=== PATIENT | female | born 1975 | race Caucasian/White ===

== ENCOUNTER 2020-05-24 08:56 | Emergency (ER) | payer BC, SELFPAY ==
--- NOTE | ~2020-05-24 | XR_ITS ---
EXAMINATION: XR chest 2V EXAM DATE: 05/24/2020 09:38 INDICATION: Cough with deep inspiration. TECHNIQUE: Frontal and lateral projections of the chest obtained and reviewed. Comparison is made to prior examination from 09/22/2010. FINDINGS: The lungs are clear. There are no pleural effusions. The cardiomediastinal silhouette is within normal limits. There is no pneumothorax suspected. The bones and soft tissues are unremarkab le. IMPRESSION: No acute cardiopulmonary findings. Reviewed, dictated and finalized at location B. 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
[2020-05-24 09:10] VITALS: BP 124/74; PULSE 82; RESP 20; TEMP 37.9; O2SAT 100
--- NOTE | 2020-05-24 09:51 | ED.URI ---
HPI - URI/Sore Throat General Chief Complaint: Upper Respiratory Infection Stated Complaint: poss bronchitis Time Seen by Provider: 05/24/20 09:38 Source: patient and RN notes reviewed Mode of arrival: ambulatory Limitations: no limitations History of Present Illness HPI Narrative: Patient presents today complaining of nasal congestion x1 month. She was subsequently treated with Cipro by her PCP. States after she finished the antibiotic her symptoms returned, approximately 2 to 3 days ago with a cough that has been worsening since onset. At 3:00 this morning she woke up stating that she was not able to take a deep breath, and this is worse when she lies down. She also reports a bit of a headache. Denies fever, body aches, chills, sweats, sore throat, or ear pain. Denies history of COPD. Reports asthma as a child. She has been taking Tylenol Sinus. History of ankylosing spondylitis for which she takes methotrexate and Taltz. She is a non-smoker. She had a flu shot in April. Related Data Home Medications Medication Instructions Recorded Confirmed duloxetine mg PO 05/24/20 folic acid 1 mg PO DAILY 05/24/20 05/24/20 gabapentin 05/24/20 hydrocodone-acetaminophen 05/24/20 ixekizumab [Taltz Autoinjector] mg SUBCUT 05/24/20 methotrexate sodium 05/24/20 Allergies Allergy/AdvReac Type Severity Reaction Status Date / Time strawberry Allergy Mild THROAT Verified 06/20/17 11:30 SWELLING AND ONSTRUCTION Penicillins Allergy Unknown Swelling Verified 05/24/20 09:18 of Lip/Tongue/Throat Review of Systems Review of Systems: Narrative: CONSTITUTIONAL: Denies body aches, fever, chills, or sweats. EYES: Denies visual changes, redness, or discharge. ENT: Denies rhinorrhea, sore throat, or otalgia. + Nasal congestion CARDIOVASCULAR: Denies chest pain, palpitations, or edema. RESPIRATORY: + Cough, shortness of breath GASTROINTESTINAL: Denies abdominal pain, nausea, vomiting, or diarrhea. GENITOURINARY: Denies dysuria or hematuria. SKIN: Denies rash, itching, or wounds. MUSCULOSKELETAL: Denies back pain, joint pain, or myalgia. NEUROLOGIC: Denies numbness, tingling, or weakness. + Headache PSYCH: Denies depression or anxiety. PMFSH Past Medical History Medical History (Updated 05/24/20 @ 12:18 by Kathy Coronado, [facility], ) Ankylosing spondylitis Family History Family History (Updated 07/07/18 @ 11:33 by DOCTOR UNKNOWN) Father Diabetes mellitus Comments At time of signature, I have reviewed and agree with nursing past medical, surgical, social and family history unless otherwise noted. Please see nursing chart for further information. There is no relevant family history pertinent to the presenting complaint Exam Narrative: Exam Narrative: GENERAL: Well-appearing, well-nourished, and in no acute distress. HEAD: Normocephalic, atraumatic. EYES: EOMI. No redness or drainage. Conjunctivae normal. ENT: Mucous membranes pink and moist. Nares mildly congested. No rhinorrhea. TMs normal bilaterally. Throat normal. Uvula midline. NECK: Normal AROM. Supple. No lymphadenopathy. CHEST: No respiratory distress. Clear to auscultation. HEART: Regular rate and rhythm. No murmur appreciated. Normal peripheral pulses. ABDOMEN: Soft, nontender, nondistended, normal active bowel sounds. MUSCULOSKELETAL: No bony tenderness. EXTREMITIES: Normal range of motion. No edema. SKIN: Warm, dry, no rash. Capillary refill normal. Normal skin turgor. NEURO: No focal deficits. Alert and oriented x3. Gait steady. PSYCH: Normal affect. No signs of depression or anxiety. Course Vital Signs Vital signs: Vital Signs Temperature 100.2 F H 05/24/20 09:10 Pulse Rate 82 05/24/20 09:10 Respiratory Rate 20 05/24/20 09:10 Blood Pressure 124/74 05/24/20 09:10 Pulse Oximetry 100 05/24/20 09:10 Temperature 100.2 F H 05/24/20 09:10 Pulse Rate 82 05/24/20 09:10 Respiratory Rate 20
== END 2020-05-24 10:08 | disposition home or self-care (01) ==
PROVIDERS: Emergency Provider Nurse Practitioner; PCP Nurse Practitioner Adult Health
DX: J40 Bronchitis, not specified as acute or chronic (principal); J06.9 Acute upper respiratory infection, unspecified; M45.9 Ankylosing spondylitis of unspecified sites in spine
CPT/HCPCS: 71046; 99213; G0463

== ENCOUNTER 2020-06-27 08:59 | Emergency (ER) | payer BC, SELFPAY ==
[2020-06-27 09:06] VITALS: BP 125/85; PULSE 71; RESP 20; TEMP 36.4; O2SAT 100
--- NOTE | 2020-06-27 09:09 | ED.GENADULT ---
HPI - General Adult General Chief complaint: Eye Problems Stated complaint: Eye Problems Time Seen by Provider: 06/27/20 09:10 Source: patient Mode of arrival: ambulatory Limitations: no limitations History of Present Illness HPI narrative: 44-year-old female patient presents to the [facility] with complaints of left eye redness for the past 3 days. Patient states she has had some clear watering from the eye but denies any colored discharge. Patient denies any itching or pain to the eye. Patient states it does feel little bit dry and states that she noticed some swelling around the upper lower lid. Patient states she is also battling some sinus issues off and on for the past month but has not been taking any antihistamines. Patient states she has had a little bit of a runny nose, some congestion denies any fevers, body aches or chills. Patient denies any cough, chest pain or shortness of breath. Patient denies wearing contacts or glasses. Denies any injury to the eye that she is aware of. Related Data Home Medications Medication Instructions Recorded Confirmed duloxetine 60 mg PO DAILY 05/24/20 06/27/20 folic acid 1 mg PO DAILY 05/24/20 06/27/20 gabapentin 600 mg PO TID 05/24/20 06/27/20 hydrocodone-acetaminophen 5 - 325 tablet PO TID 05/24/20 06/27/20 ixekizumab [Taltz Autoinjector] 80 mg SUBCUT MONTHLY 05/24/20 06/27/20 methotrexate sodium 2.5 mg PO DAILY 05/24/20 06/27/20 Allergies Allergy/AdvReac Type Severity Reaction Status Date / Time strawberry Allergy Mild THROAT Verified 06/27/20 09:15 SWELLING AND ONSTRUCTION Penicillins Allergy Unknown Swelling Verified 06/27/20 09:15 of Lip/Tongue/Throat Review of Systems Review of Systems: Narrative: CONSTITUTIONAL: Denies fever, chills, or sweats. EYES: Denies visual changes, positive left eye redness, tearing clear discharge. ENT: Positive rhinorrhea, congestion, denies sore throat, or otalgia. CARDIOVASCULAR: Denies chest pain, palpitations, or edema. RESPIRATORY: Denies cough or dyspnea. GASTROINTESTINAL: Denies abdominal pain, nausea, vomiting, or diarrhea. GENITOURINARY: Denies dysuria or hematuria. SKIN: Denies rash or itching. MUSCULOSKELETAL: Denies back pain, joint pain, or myalgia. NEUROLOGIC: Denies headache, numbness, or weakness. PSYCHIATRIC: Denies anxiety or depression. [facility] Past Medical History Medical History (Updated 06/27/20 @ 09:21 by ELIAS Davila) Ankylosing spondylitis Anxiety Asthma Degenerative disc disease Depression Gastrointestinal disorder Fatty liver, weight loss surgery Kidney stones Musculoskeletal disorder Skull fracture, left ankle fracture, neck pain, arthritis, right tarsal tunnel release Osteoarthritis Left knee Surgical History Surgical History (Updated 06/27/20 @ 09:12 by ELIAS Davila) History of tonsillectomy Hx of cholecystectomy Family History Family History Father Diabetes mellitus Comments At the time of my signature I agree with nursing past medical history, surgical, social, and family history. There is no relevant family history pertinent to the presenting complaint. Exam Narrative: Exam Narrative: GENERAL: Well-appearing, well-nourished, and in no acute distress. HEAD: Normocephalic, atraumatic. EYES: PERRLA and EOM intact without limitation or complaint of pain, no periorbital soft tissue swelling ,no erythema, warmth or tenderness noted, no obvious deformity. There is some swelling noted to the upper and lower lid on the left eye with slight erythema present. No warmth present. No crusting or swelling.clear tearing. No photophobia. No nystagmus No FB or lesion on lid eversion. Corneas grossly clear, no obvious FB or hyphens/hypopyon. injection to sclera of left eye. Conjunctive does appear to be red and swollen. Lids and lashes clear. ENT: Nares with erythema and edema noted bilaterally, no rhino
== END 2020-06-27 09:34 | disposition home or self-care (01) ==
PROVIDERS: Emergency Provider Nurse Practitioner Family; PCP Nurse Practitioner Adult Health
DX: H10.12 Acute atopic conjunctivitis, left eye (principal); M45.9 Ankylosing spondylitis of unspecified sites in spine; J45.909 Unspecified asthma, uncomplicated; M17.12 Unilateral primary osteoarthritis, left knee; K76.0 Fatty (change of) liver, not elsewhere classified
CPT/HCPCS: 99213; G0463

== ENCOUNTER 2020-12-20 18:17 | Emergency (ER) | payer BC, SELFPAY ==
[2020-12-20 18:24] VITALS: BP 121/76; PULSE 81; RESP 20; TEMP 36.4; O2SAT 100
--- NOTE | 2020-12-20 18:31 | ED.URI ---
HPI - URI/Sore Throat General Chief Complaint: Dental/Oral Stated Complaint: Sore Throat Time Seen by Provider: 12/20/20 18:33 Source: patient Mode of arrival: ambulatory Limitations: no limitations History of Present Illness HPI Narrative: patient presents with sore throat and white patches on her tonsils and tongue. no drooling and no trouble swallowing. patient states she lost her sense of smell this am and was ordered a covid test by pcp. patient states covid test was negative. MD elicited complaint: sore throat Related Data Home Medications Medication Instructions Recorded Confirmed duloxetine 60 mg PO DAILY 05/24/20 12/20/20 folic acid 1 mg PO DAILY 05/24/20 12/20/20 gabapentin 600 mg PO TID 05/24/20 12/20/20 hydrocodone-acetaminophen 5 - 325 tablet PO TID 05/24/20 12/20/20 ixekizumab [Taltz Autoinjector] 80 mg SUBCUT MONTHLY 05/24/20 12/20/20 methotrexate sodium 2.5 mg PO DAILY 05/24/20 12/20/20 methylprednisolone See Rx Instructions .ROUTE .COMPLEX 12/20/20 12/20/20 Allergies Allergy/AdvReac Type Severity Reaction Status Date / Time strawberry Allergy Mild THROAT Verified 12/20/20 18:23 SWELLING AND ONSTRUCTION Penicillins Allergy Unknown Swelling Verified 12/20/20 18:23 of Lip/Tongue/Throat Review of Systems Review of Systems: Narrative: CONSTITUTIONAL: Denies chills, or sweats. Reports fever and generalized body aches EYES: Denies visual changes, redness, or discharge. ENT: Denies otalgia. Reports nasal congestion runny nose and sore throat CARDIOVASCULAR: Denies chest pain, palpitations, or edema. RESPIRATORY: Denies dyspnea. Reports occasional cough GASTROINTESTINAL: Denies abdominal pain, nausea, vomiting, or diarrhea. GENITOURINARY: Denies dysuria or hematuria. SKIN: Denies rash or itching. MUSCULOSKELETAL: Denies back pain, joint pain, or myalgia. Reports generalized body aches NEUROLOGIC: Denies headache, numbness, or weakness. PSYCHIATRIC: Denies anxiety or depression. [facility] Past Medical History Medical History (Updated 12/20/20 @ 18:36 by ELIAS Quintero) Ankylosing spondylitis Anxiety Asthma Degenerative disc disease Depression Gastrointestinal disorder Fatty liver, weight loss surgery Kidney stones Musculoskeletal disorder Skull fracture, left ankle fracture, neck pain, arthritis, right tarsal tunnel release Osteoarthritis Left knee Surgical History Surgical History (Updated 06/27/20 @ 09:12 by ELIAS Davila) History of tonsillectomy Hx of cholecystectomy Family History Family History Father Diabetes mellitus Comments At time of signature, agree with nursing past medical, surgical, social and family history. There is no relevant family history pertinent to the presenting complaint Exam Narrative: Exam Narrative: The patient is a well-developed, well-nourished in no acute distress. SKIN: Skin is warm and dry without erythema, swelling or exudate. There is good turgor. No tenting. HEAD: Atraumatic. Normocephalic. No temporal or scalp tenderness. EYES: Moist and bright. Sclera and conjunctivae normal. No discharge. PERRLA. Extraocular motions intact. Gross visual acuity intact. EARS: Pinna is normal shape and contour. Clear external auditory canals. TM pearly rojas with good cone of light, no erythema or suppuration. Bilateral cerumen noted no gross hearing deficit. NOSE: pink, moist mucosa with good air movement. Clear rhinorrhea without nasal flaring. Septum midline. Mouth: moist mucous membranes. White coating to tongue and sides of cheeks it does not wipe off consistent with thrush THROAT; mild erythema noted to posterior oropharynx with moderate postnasal drainage. Moderate amount of pharyngeal erythremia with exudate or ulceration.. Uvula midline. Normal movement of soft palate. NECK: Supple and nontender with full range of motion without discomfort. No meningeal signs. KULWANT
[2020-12-20 18:38] VITALS: BP 121/76; PULSE 81; RESP 20; TEMP 36.4; O2SAT 100
== END 2020-12-20 19:00 | disposition home or self-care (01) ==
PROVIDERS: Emergency Provider Nurse Practitioner Family; PCP Family Medicine
DX: J02.9 Acute pharyngitis, unspecified (principal); B37.0 Candidal stomatitis; M45.9 Ankylosing spondylitis of unspecified sites in spine; F41.9 Anxiety disorder, unspecified; J45.909 Unspecified asthma, uncomplicated; F32.9 Major depressive disorder, single episode, unspecified; M17.12 Unilateral primary osteoarthritis, left knee
CPT/HCPCS: 87081; 87880; 99213; G0463

== ENCOUNTER 2021-02-03 08:07 | Emergency (ER) | payer BC, SELFPAY ==
[2021-02-03 08:17] VITALS: BP 131/87; PULSE 86; RESP 18; TEMP 37.2; O2SAT 100
--- NOTE | 2021-02-03 08:26 | ED.URI ---
HPI - URI/Sore Throat General Chief Complaint: Upper Respiratory Infection Stated Complaint: cough sore throat congestion Time Seen by Provider: 02/03/21 08:26 Source: patient History of Present Illness HPI Narrative: Patient presents with a 3-day history of cough nasal congestion and increased fatigue. No shortness of breath and no chest pain. Patient has not been immunized for COVID-19 and has not had any exposure that she is aware of. MD elicited complaint: fever and cough Related Data Home Medications Medication Instructions Recorded Confirmed duloxetine 60 mg PO DAILY 05/24/20 02/03/21 folic acid 1 mg PO DAILY 05/24/20 02/03/21 gabapentin 600 mg PO TID 05/24/20 02/03/21 hydrocodone-acetaminophen 5 - 325 tablet PO TID 05/24/20 02/03/21 ixekizumab [Taltz Autoinjector] 80 mg SUBCUT MONTHLY 05/24/20 02/03/21 ergocalciferol (vitamin D2) 1,250 mcg PO WEEKLY 02/03/21 02/03/21 propranolol 40 mg PO BID 02/03/21 02/03/21 topiramate 25 mg PO BID 02/03/21 02/03/21 Allergies Allergy/AdvReac Type Severity Reaction Status Date / Time Penicillins Allergy Severe Anaphylaxis Verified 02/03/21 08:32 strawberry Allergy Mild THROAT Verified 02/03/21 08:32 SWELLING AND ONSTRUCTION Review of Systems Review of Systems: CONSTITUTIONAL: Denies chills, or sweats. Reports fever and generalized body aches EYES: Denies visual changes, redness, or discharge. ENT: Denies otalgia. Reports nasal congestion runny nose and sore throat CARDIOVASCULAR: Denies chest pain, palpitations, or edema. RESPIRATORY: Denies dyspnea. Reports occasional cough GASTROINTESTINAL: Denies abdominal pain, nausea, vomiting, or diarrhea. GENITOURINARY: Denies dysuria or hematuria. SKIN: Denies rash or itching. MUSCULOSKELETAL: Denies back pain, joint pain, or myalgia. Reports generalized body aches NEUROLOGIC: Denies headache, numbness, or weakness. PSYCHIATRIC: Denies anxiety or depression. [facility] Past Medical History Medical History (Updated 02/03/21 @ 08:51 by ELIAS Quintero) Ankylosing spondylitis Anxiety Asthma Degenerative disc disease Depression Gastrointestinal disorder Fatty liver, weight loss surgery Kidney stones Musculoskeletal disorder Skull fracture, left ankle fracture, neck pain, arthritis, right tarsal tunnel release Osteoarthritis Left knee Surgical History Surgical History (Updated 06/27/20 @ 09:12 by ELIAS Davila) History of tonsillectomy Hx of cholecystectomy Family History Family History Father Diabetes mellitus Comments At time of signature, agree with nursing past medical, surgical, social and family history. There is no relevant family history pertinent to the presenting complaint Exam Narrative: The patient is a well-developed, well-nourished in no acute distress. SKIN: Skin is warm and dry without erythema, swelling or exudate. There is good turgor. No tenting. HEAD: Atraumatic. Normocephalic. No temporal or scalp tenderness. EYES: Moist and bright. Sclera and conjunctivae normal. No discharge. PERRLA. Extraocular motions intact. Gross visual acuity intact. EARS: Pinna is normal shape and contour. Clear external auditory canals. TM pearly rojas with good cone of light, no erythema or suppuration. Bilateral cerumen noted no gross hearing deficit. NOSE: pink, moist mucosa with good air movement. Clear rhinorrhea without nasal flaring. Septum midline. Mouth: moist mucous membranes. THROAT; mild erythema noted to posterior oropharynx with moderate postnasal drainage. Without exudate or ulceration.. Uvula midline. Normal movement of soft palate. NECK: Supple and nontender with full range of motion without discomfort. No meningeal signs. LUNGS: Equal and bilateral breath sounds without wheezes, rales or rhonchi. CHEST: The chest wall is without retractions or use of accessory muscles. HEART: Has a regular rate and rhythm without murmur, gal
== END 2021-02-03 08:53 | disposition home or self-care (01) ==
PROVIDERS: Emergency Provider Nurse Practitioner Family; PCP Nurse Practitioner Adult Health
DX: J06.9 Acute upper respiratory infection, unspecified (principal); B34.9 Viral infection, unspecified; Z20.822 Contact with and (suspected) exposure to COVID-19; J45.909 Unspecified asthma, uncomplicated; M17.12 Unilateral primary osteoarthritis, left knee
CPT/HCPCS: 87426; 99213; C9803; G0463

== ENCOUNTER → 2021-05-07 10:17 | Outpatient (CLI) | payer BC, SELFPAY ==
--- NOTE | ~2021-05-07 | US_ITS ---
EXAMINATION: US pelvic complete w TV DATE: 05/07/2021 10:47 INDICATION: Abdominal bloating Comparison:Ultrasound dated 03/18/2017 TECHNIQUE: Multiple transabdominal and endovaginal sonographic images of the pelvis performed. FINDINGS: The uterus measures 5.6 x 3.2 x 3.9 cm. The endometrial complex measures 5 mm. The right ovary measures 1.4 x 1.3 x 1.2 cm and the left ovary measures 3.5 x 3.1 x 3.1 cm. There ar e small follicles in each ovary. There is a 3.1 cm simple cyst of the left ovary. Normal doppler sign al in both ovaries. There is no free fluid in the pelvis. There are no abnormal masses seen on either side. IMPRESSION: 1. Simple left ovarian cyst measuring 3.1 cm. Reviewed, dictated and finalized at location A. ING TECHNICIAN
== END ==
PROVIDERS: Visit Provider Nurse Practitioner
DX: N93.8 Other specified abnormal uterine and vaginal bleeding (principal); N83.202 Unspecified ovarian cyst, left side
CPT/HCPCS: 76830; 76856

== ENCOUNTER 2021-08-07 13:03 | Outpatient (CLI) | payer OTHER, SELFPAY ==
--- NOTE | ~2021-08-07 | MM_ITS ---
EXAMINATION: MM screening mayra BI w sai HISTORY: Screening TECHNIQUE: Craniocaudal and mediolateral oblique 3-D tomosynthesis images were obtained and synthetic 2-D images were generated. CAD analysis was submitted and interpreted. COMPARISON: Comparison to multiple prior studies sequentially, with oldest reviewed study dated 08/2016. BREAST PARENCHYMAL COMPOSITION: There are scattered areas of fibroglandular density. FINDINGS: There is no evidence of suspicious mass, calcification, or architectural distortion to sugg est malignancy in either breast. There has been no suspicious interval change. IMPRESSION: 1. No mammographic evidence of malignancy. 2. Recommend routine screening mammography in one year. BI-RADS Category 1: Negative Reviewed, dictated and finalized at location A. RTISING SALES ASSOCIATE
--- NOTE | ~2021-08-07 | US_ITS ---
EXAMINATION: US transvaginal DATE: 08/07/2021 13:39 INDICATION: Ovarian cyst. Follow-up. TECHNIQUE: Multiple transvaginal sonographic images of the pelvis were obtained. COMPARISON: ultrasound 05/07/21 FINDINGS: The uterus measures 6.2 x 3.7 x 4.2 cm. There is no free fluid in the pelvis. The endometrial complex measures 6 mm in thickness. The right ovary is not visualized. The left ovary measures 4.8 x 3.3 x 2 .9 cm. There is a 2.5 cm dominant follicle in left ovary. There is vascular flow in left ovary. IMPRESSION: 1. Normal left ovary and uterus. Right ovary not visualized. Reviewed, dictated and finalized at location A. RNATIONAL EXCHANGE COORDINATOR
== END 2021-08-07 13:04 ==
PROVIDERS: Visit Provider Obstetrics & Gynecology Gynecology
DX: Z12.31 Encounter for screening mammogram for malignant neoplasm of breast (principal); N83.202 Unspecified ovarian cyst, left side
CPT/HCPCS: 76830; 77063; 77067

== ENCOUNTER 2022-11-22 16:14 | Emergency (ER) | payer OTHER, SELFPAY ==
[2022-11-22 16:30] VITALS: BP 128/90; PULSE 89; RESP 18; TEMP 37; O2SAT 100
--- NOTE | 2022-11-22 17:00 | ED.URI ---
HPI - URI/Sore Throat General Chief Complaint: Upper Respiratory Infection Stated Complaint: Chest Congestion/Cough Time Seen by Provider: 11/22/22 17:00 Source: patient, RN notes reviewed and old records reviewed Mode of arrival: ambulatory Limitations: no limitations History of Present Illness HPI Narrative: 47-year-old female presents to the [facility] with complaints of chest congestion and a cough since for 2 days. Tried taking [id number] medications with minimal to no relief. Denies fevers, chest pain. Denies smoking. Onset (ago): day(s) (2) Treatments prior to arrival: cold medicine Related Data Home Medications Medication Instructions Recorded Confirmed cyanocobalamin (vitamin B-12) See Rx Instructions .Route .COMPLEX 11/22/22 11/22/22 1,000 mcg/mL injection solution duloxetine 60 mg capsule,delayed 60 mg PO DAILY 11/22/22 11/22/22 release gabapentin 600 mg tablet 600 mg PO TID 11/22/22 11/22/22 ixekizumab 80 mg/mL subcutaneous See Rx Instructions .Route .COMPLEX 11/22/22 11/22/22 auto-injector (Taltz Autoinjector) methotrexate sodium 2.5 mg tablet See Rx Instructions .Route .COMPLEX 11/22/22 11/22/22 omeprazole 40 mg capsule,delayed 40 mg PO DAILY 11/22/22 11/22/22 release Allergies Allergy/AdvReac Type Severity Reaction Status Date / Time Penicillins Allergy Severe Anaphylaxis Verified 11/22/22 16:18 strawberry Allergy Mild THROAT Verified 11/22/22 16:18 SWELLING AND ONSTRUCTION Review of Systems Review of Systems: All systems reviewed & are unremarkable except as noted in HPI and below Constitutional: Constitutional: Reports no additional constitutional complaints Eyes: Eyes: Reports no additional eye complaints ENT: Reports system reviewed and no additional complaints, except as documented Cardiovascular: Cardiovascular: Reports no additional cardiovascular complaints, Denies chest pain and Denies dyspnea Respiratory: Respiratory: Reports as per HPI, Reports chest congestion, Reports cough and Denies dyspnea Gastrointestinal: Gastrointestinal: Reports no additional gastrointestinal complaints, Denies abdominal pain, Denies nausea and Denies vomiting Musculoskeletal: Musculoskeletal: Reports no additional musculoskeletal complaints Integumentary/Breasts: Skin/Breast: Reports system reviewed and no additional complaints, except as docu Neurologic: Reports system reviewed and no additional complaints, except as documented Psychiatric: Psychiatric: Reports no additional psychiatric complaints Allergic/Immunologic: Allergic/Immunologic: Reports no additional allergic/immunologic complaints PMFSH Past Medical History Medical History Ankylosing spondylitis Anxiety Asthma Degenerative disc disease Depression Gastrointestinal disorder Fatty liver, weight loss surgery Kidney stones Musculoskeletal disorder Skull fracture, left ankle fracture, neck pain, arthritis, right tarsal tunnel release Osteoarthritis Left knee Surgical History Surgical History History of tonsillectomy Hx of cholecystectomy Family History Family History Father Diabetes mellitus Comments At the time of my signature, I reviewed and agree with the nursing past medical, surgical, social, and family history. There is no relevant family history pertinent to the patient complaint. Exam Const: General: cooperative, healthy appearing, comfortable, no acute distress, well developed, alert and well nourished Nutritional Appearance: well nourished and obese Orientation/consciousness: patient oriented x3 Limitations: no limitations HENMT: Head: normal to inspection Ears: hearing grossly normal bilaterally and external ears normal Face/Nose/Sinus: Normal external nose present, Normal nares present, Normal nasal mucous membran
== END 2022-11-22 17:10 | disposition home or self-care (01) ==
PROVIDERS: Emergency Provider Nurse Practitioner
DX: J40 Bronchitis, not specified as acute or chronic (principal); M45.9 Ankylosing spondylitis of unspecified sites in spine; J45.909 Unspecified asthma, uncomplicated; M17.12 Unilateral primary osteoarthritis, left knee
CPT/HCPCS: 99213; G0463

== ENCOUNTER 2024-03-23 08:49 | Emergency (ER) | payer OTHER, SELFPAY ==
--- NOTE | ~2024-03-23 | XR_ITS ---
XR chest 2V Ordering provider: ELIAS Mock History: 48 years Female with . Dry/wet continuous cough. Previous smoker . Comparison: May 24, 2020 FINDINGS: MEDIASTINUM: The cardiac silhouette is not enlarged. LUNGS: No infiltrates, effusions or pneumothorax. OTHER: No free air under the diaphragm. Spinal stimulator is noted. IMPRESSION: No acute cardiopulmonary pathology. Reviewed, dictated and finalized at location A.
[2024-03-23 08:57] VITALS: BP 138/88; PULSE 87; RESP 18; TEMP 36.3; O2SAT 100
--- NOTE | 2024-03-23 09:47 | ED.GENADULT ---
HPI - General Adult General Chief complaint: Upper Respiratory Infection Stated complaint: Cough/Chest Pain Right Side Source: patient Mode of arrival: ambulatory Limitations: no limitations History of Present Illness HPI narrative: Patient presents for evaluation of sick symptoms since last . She initially had some sinus congestion postnasal drainage. She now has a productive cough dyspnea on exertion. She states that some of her coughing episodes are so severe that makes her feel nauseous. She has not had any vomiting or diarrhea. Reports hot flashes and chills but did not have a thermometer to check her temperature. No recent sick contacts to her knowledge. She has been taking Robitussin for symptoms. She states she had asthma in childhood but outgrew it. Related Data Home Medications Medication Instructions Recorded Confirmed cyanocobalamin (vitamin B-12) See Rx Instructions .Route .COMPLEX 11/22/22 11/22/22 1,000 mcg/mL injection solution duloxetine 60 mg capsule,delayed 60 mg PO DAILY 11/22/22 11/22/22 release gabapentin 600 mg tablet 600 mg PO TID 11/22/22 11/22/22 ixekizumab 80 mg/mL subcutaneous See Rx Instructions .Route .COMPLEX 11/22/22 11/22/22 auto-injector (Taltz Autoinjector) methotrexate sodium 2.5 mg tablet See Rx Instructions .Route .COMPLEX 11/22/22 11/22/22 omeprazole 40 mg capsule,delayed 40 mg PO DAILY 11/22/22 11/22/22 release Allergies Allergy/AdvReac Type Severity Reaction Status Date / Time Penicillins Allergy Severe Anaphylaxis Verified 11/22/22 16:18 strawberry Allergy Mild THROAT Verified 11/22/22 16:18 SWELLING AND ONSTRUCTION Review of Systems Review of Systems: CONSTITUTIONAL: Denies fever, chills, or sweats. EYES: Denies visual changes, redness, or discharge. ENT: Reports sore throat from coughing. Denies sore throat otherwise. Denies rhinorrhea or otalgia. CARDIOVASCULAR: Denies chest pain, palpitations, or edema. RESPIRATORY: Reports cough and dyspnea on exertion. GASTROINTESTINAL: Reports nausea during severe coughing episodes. Denies nausea otherwise. Denies abdominal pain, vomiting, or diarrhea. GENITOURINARY: Denies dysuria or hematuria. SKIN: Denies rash or itching. MUSCULOSKELETAL: Denies back pain, joint pain, or myalgia. NEUROLOGIC: Denies headache, numbness, dizziness, or weakness. PSYCHIATRIC: Denies anxiety or depression. [facility] Past Medical History Medical History (Updated 03/23/24 @ 10:12 by ELIAS Mock, ) Ankylosing spondylitis Anxiety Asthma Degenerative disc disease Depression Gastrointestinal disorder Fatty liver, weight loss surgery Kidney stones Musculoskeletal disorder Skull fracture, left ankle fracture, neck pain, arthritis, right tarsal tunnel release Osteoarthritis Left knee Surgical History Surgical History History of removal of ovarian cyst History of tonsillectomy Hx of cholecystectomy Family History Family History Father Diabetes mellitus Social History Social History Substance use: never Gender identity (if verbalized by the patient): Female Spiritual care concerns: No Exam Narrative: GENERAL: Well-appearing, well-nourished, and in no acute distress. HEAD: Normocephalic, atraumatic. EYES: PERRLA and EOMI. ENT: Nares clear, no rhinorrhea or epistaxis. Mucous membranes moist. Oropharynx without tonsillar hypertrophy exudate or other lesions. Bilateral TMs pearly ge nonbulging NECK: Supple. No adenopathy or masses. No carotid bruits or JVD CHEST: Wheezing noted in lung thapa bilaterally. Diminished breath sounds throughout. Cough present on exam. HEART: Regular rate and rhythm. No murmur heard. Normal peripheral pulses. ABDOMEN: Soft, nontender, nondistended, normal active bowel
== END 2024-03-23 10:20 | disposition home or self-care (01) ==
PROVIDERS: Emergency Provider Nurse Practitioner; PCP Internal Medicine Infectious Disease
DX: J06.9 Acute upper respiratory infection, unspecified (principal)
CPT/HCPCS: 71046; 99213; G0463

== ENCOUNTER 2024-03-29 16:07 | Emergency (ER) | payer OTHER, SELFPAY ==
[2024-03-29 16:14] VITALS: BP 115/91; PULSE 95; RESP 20; TEMP 36.5; O2SAT 100
--- NOTE | 2024-03-29 16:56 | ED.SKABFB ---
HPI - Skin/Abscess/Foreign Bdy General Chief complaint: Skin/Abscess/Foreign Body Stated complaint: Skin Sore/Rash History of Present Illness HPI narrative: patient is a 48-year-old female, past medical history significant for asthma bronchitis, recently completed oral steroids for a viral URI/bronchitis, presents to [facility] with right flank rash eruption is painful. She noticed her symptoms last night. She denies associated fevers but has felt achy. She has no known contact allergies. She has no history of shingles. She does have history of varicella as a child. She is taking Tylenol for discomfort with some symptom relief. She denies any additional associated symptoms or modifying factors. Related Data Home Medications Medication Instructions Recorded Confirmed cyanocobalamin (vitamin B-12) See Rx Instructions .Route .COMPLEX 11/22/22 11/22/22 1,000 mcg/mL injection solution duloxetine 60 mg capsule,delayed 60 mg PO DAILY 11/22/22 11/22/22 release gabapentin 600 mg tablet 600 mg PO TID 11/22/22 11/22/22 ixekizumab 80 mg/mL subcutaneous See Rx Instructions .Route .COMPLEX 11/22/22 11/22/22 auto-injector (Taltz Autoinjector) methotrexate sodium 2.5 mg tablet See Rx Instructions .Route .COMPLEX 11/22/22 11/22/22 omeprazole 40 mg capsule,delayed 40 mg PO DAILY 11/22/22 11/22/22 release Allergies Allergy/AdvReac Type Severity Reaction Status Date / Time Penicillins Allergy Severe Anaphylaxis Verified 11/22/22 16:18 strawberry Allergy Mild THROAT Verified 11/22/22 16:18 SWELLING AND ONSTRUCTION Review of Systems Integumentary/Breasts: Comments: Refer to [facility] Past Medical History Medical History (Updated 03/29/24 @ 17:02 by ELIAS Blackwell) Ankylosing spondylitis Anxiety Asthma Degenerative disc disease Depression Gastrointestinal disorder Fatty liver, weight loss surgery Kidney stones Musculoskeletal disorder Skull fracture, left ankle fracture, neck pain, arthritis, right tarsal tunnel release Osteoarthritis Left knee Surgical History Surgical History History of removal of ovarian cyst History of tonsillectomy Hx of cholecystectomy Family History Family History Father Diabetes mellitus Social History Social History Substance use: never Gender identity (if verbalized by the patient): Female Spiritual care concerns: No Exam Const: General: cooperative, healthy appearing, comfortable and no acute distress Nutritional Appearance: average body habitus Orientation/consciousness: oriented to person, oriented to place, oriented to time and patient oriented x3 Limitations: no limitations HENMT: Head: normal to inspection Ears: hearing grossly normal bilaterally and external ears normal Face/Nose/Sinus: Normal external nose present and Normal nares present Mouth: Yes Normal oral and palatal mucosa present Eyes: General: appearance normal, both eyes and all related structures Eyelids: eyelids normal Conjunctivae: conjunctivae normal Cornea: corneas normal EOM: EOMs intact bilaterally Neck: Neck: normal visual inspection, full ROM, no lymphadenopathy and no meningeal signs Thyroid: thyroid normal Lymphatic: no lymphadenopathy noted Resp: Effort & Inspection: normal respiratory effort Auscultation: clear to auscultation bilaterally Cardio: Palpation: normal PMI Rate: regular rate Rhythm: regular rhythm Heart sounds: S1 normal heart sound present and S2 normal heart sound present Peripheral pulses: Peripheral pulses 2+ throughout Skin: General skin exam: normal color and rashes Other: patient has 2 focal clusters of vesicles to the right flank, tenderness to palpation overlying, no lymphangitis, no pustules noted. No other skin surfaces with similar
== END 2024-03-29 17:06 | disposition home or self-care (01) ==
PROVIDERS: Emergency Provider Nurse Practitioner Family
DX: B02.9 Zoster without complications (principal); J45.909 Unspecified asthma, uncomplicated; M17.12 Unilateral primary osteoarthritis, left knee; M45.9 Ankylosing spondylitis of unspecified sites in spine
CPT/HCPCS: 99213; G0463

== ENCOUNTER 2024-10-05 08:55 | Emergency (ER) | payer OTHER, SELFPAY ==
--- NOTE | 2024-10-05 08:59 | ED_ITS ---
HPI - URI/Sore Throat General Chief Complaint: Upper Respiratory Infection Stated Complaint: Cough/Breathing Problem/Chest Congestion Time Seen by Provider: 10/05/24 09:26 Source: patient and RN notes reviewed Mode of arrival: ambulatory Limitations: no limitations History of Present Illness HPI Narrative: 49-year-old female with history of eye disease presents with concern for one- week history of cough, congestion, chest congestion, fatigue. Reports sweats. Reports she has been taking DayQuil and NyQuil. She reports history of bronchitis. Reports history of asthma as a child. She has not taken her ck son MD elicited complaint: cough Related Data Home Medications ?Medication ?Instructions ?Recorded ?Confirmed ?Last Taken ?Type cyanocobalamin (vitamin B-12) See Rx Instructions .Route .COMPLEX 11/22/22 11/22/22 Unknown History 1,000 mcg/mL injection solution duloxetine 60 mg capsule,delayed 60 mg PO DAILY 11/22/22 11/22/22 Unknown History release gabapentin 600 mg tablet 600 mg PO TID 11/22/22 11/22/22 Unknown History ixekizumab 80 mg/mL subcutaneous See Rx Instructions .Route .COMPLEX 11/22/22 11/22/22 Unknown History auto-injector (Taltz Autoinjector) methotrexate sodium 2.5 mg tablet See Rx Instructions .Route .COMPLEX 11/22/22 11/22/22 Unknown History omeprazole 40 mg capsule,delayed 40 mg PO DAILY 11/22/22 11/22/22 Unknown History release Allergies Allergy/AdvReac Type Severity Reaction Status Date / Time Penicillins Allergy Severe Anaphylaxis Verified 11/22/22 16:18 strawberry Allergy Mild THROAT Verified 11/22/22 16:18 SWELLING AND ONSTRUCTION Review of Systems Review of Systems: CONSTITUTIONAL: Reports malaise, sweats EYES: Denies visual changes, redness, or discharge. ENT: Reports rhinorrhea, congestion CARDIOVASCULAR: Denies chest pain, palpitations, or edema. RESPIRATORY: Reports cough and chest congestion. Reports conversational dyspnea. GASTROINTESTINAL: Denies abdominal pain, nausea, vomiting, diarrhea SKIN: Denies rash or itching. MUSCULOSKELETAL: Denies myalgia. NEUROLOGIC: Denies headache. All systems reviewed & are unremarkable except as noted in HPI and below PMFSH Past Medical History Medical History (Updated 10/05/24 @ 09:30 by Annetta Blank NP) Depression Anxiety Degenerative disc disease Musculoskeletal disorder Skull fracture, left ankle fracture, neck pain, arthritis, right tarsal tunnel release Osteoarthritis Left knee Kidney stones Gastrointestinal disorder Fatty liver, weight loss surgery Asthma Ankylosing spondylitis Surgical History Surgical History History of removal of ovarian cyst History of tonsillectomy Hx of cholecystectomy Family History Family History Father Diabetes mellitus Social History Social History Substance use: never Gender identity (if verbalized by the patient): Female Spiritual care concerns: No Comments At time of signature, agree with nursing past medical, surgical, social and family history. There is no relevant family history pertinent to the presenting complaint Exam Narrative: GENERAL: Nontoxic-appearing, and in no acute distress. HEAD: Normocephalic EYES: PERRLA, conjunctivae clear ENT: Nares clear. Mucous membranes moist. TM pearly ge with sharp light reflex bilaterally; no tragal tenderness. Oropharynx not erythematous without lesions. Tonsils not enlarged and without exudate, no drooling, no hoarseness, no trismus, uvula midline. NECK: Supple. No lymphadenopathy CHEST: Scattered wheeze throughout, breath sounds equal. No rhonchi, rales, or stridor. No respiratory distress, speaks in full sentences. HEART: Regular rate and rhythm. No murmur heard. SKIN: Warm, dry, no rash. NEURO: Alert and oriented x3. PSYCH: Normal mood and affect Course Course Emergency Course: Patient is aware of diagnosis, understands and agrees to treatment plan. Anticipatory guidance given. Patient agrees to follow-up as directed and is aware of reasons to seek care at the emergency department. Portions of this record may have been created with voice recognition software Level of Care: Express Care Visit Vital Signs Vital signs: Reviewed. MDM - URI/Sore Throat MDM Narrative Medical decision making narrative: Differential diagnosis considered: Ureña virus, strep pharyngitis, allergic rhinitis, upper respiratory tract infection, sinusitis, rhinosinusitis, nasopharyngitis. viral pharyngitis, otitis media, otitis externa, pneumonia, bronchitis, viral cough syndrome, viral syndrome, and influenza. Exam findings show no acute concerns or changes; patient is non-toxic appearing and is in no distress. Patient is appropriate for outpatient treatment and follow-up. Lab Data Attestation: I reviewed the patient's lab results. Critical Care Time Critical Care Time Critical Care Time: No Discharge Plan Discharge Clinical Impression: Lower respiratory tract infection Patient Disposition: Home Condition: Stable Instructions: Antibiotic Form, How to Use a Metered-Dose Inhaler (ED) Additional Instructions: 1) Please follow-up with your primary care doctor in the next 1-2 days. 2) If you have any worsening of symptoms or any other urgent concerns please go to the ER. 3) Please take medications as prescribed and continue taking your home medications as usual. 4) Please read and follow information included in discharge instructions. Patient Language: French Prescriptions: New azithromycin [Zithromax Z-Bismark] 250 mg tablet See Rx Instructions .ROUTE .COMPLEX Qty: 6 0RF Rx Instructions: take 500 mg today (day 1), then 250 mg for 4 days (days 2-5) prednisone 20 mg tablet 40 mg PO DAILY 5 Days Qty: 10 0RF albuterol sulfate 90 mcg/actuation HFA aerosol inhaler 2 puff INHALATION QID PRN (Reason: shortness of breath or wheezing) Qty: 8.5 0RF No Action albuterol sulfate [ProAir HFA] 90 mcg/actuation HFA aerosol inhaler 2 puff INHALATION QID Qty: 8 0RF gabapentin 600 mg tablet 600 mg PO TID omeprazole 40 mg capsule,delayed release(DR/EC) 40 mg PO DAILY methotrexate sodium 2.5 mg tablet See Rx Instructions .ROUTE .COMPLEX Rx Instructions: as prescribed cyanocobalamin (vitamin B-12) 1,000 mcg/mL solution See Rx Instructions .ROUTE .COMPLEX Rx Instructions: as prescribed duloxetine 60 mg capsule,delayed release(DR/EC) 60 mg PO DAILY Taltz Autoinjector 80 mg/mL auto-injector See Rx Instructions .ROUTE .COMPLEX Rx Instructions: as prescribed (DME) Aerochamber MV Spacer See Rx Instructions .Route Qty: 1 0RF Rx Instructions: As directed albuterol sulfate 90 mcg/actuation HFA aerosol inhaler 2 puff inhalation QID PRN (Reason: shortness of breath or wheezing) Qty: 6.7 0RF valacyclovir [Valtrex] 1 gram tablet 1,000 mg PO Q8H 7 Days Qty: 21 0RF prednisone 20 mg tablet 20 mg PO DAILY 5 Days Qty: 5 0RF Proair Digihaler 90 mcg/actuation aero powdr breath act w/sensor 2 inh inhalation Q4-6H PRN (Reason: shortness of breath) Qty: 1 0RF Follow-up/Referrals: PHYSICIAN NOT ON STAFF,NONSTAFF [Primary Care Provider] - Time of Disposition: 09:31
[2024-10-05 09:00] VITALS: BP 150/89; PULSE 73; RESP 16; TEMP 36.6; O2SAT 100
--- OUTSIDE RECORDS SUMMARY | 2024-10-05 09:24 | XMS_ITS | Clinical Summary ---
Author Organization [facility] Address [address] [place] [address] Care Team Providers Care Granite Worker Name Role Phone Talita Almaraz MD Primary Care Provider [phone] Source Comments [facility],non-owned Affiliates and Associated Physician Practices is amultiple site organization consisting of ambulatory clinics and hospital sitesin [place], [place], [place] and [place]. This disclosure is being madepursuant to the Care Everywhere program and may not contain all information available regarding this patient. Last updated 18.[facility] [employer] Allergies Active Allergy Reactions Criticality Noted Date Comments Adhesive Sensitivity 06/20/2011 Peels skin off/ paper tape is OK Penicillins Shortness of Breath,Swelling High 03/28/2011 Throat swells up/ can't breathe [place] Anaphylaxis High 06/20/2011 Medications * Be aware that medications may not be up to date on this document. Alwaysverify current medications with the patient. Medication Sig Dispensed Refills Start Date End Date Status acetaminophen (TYLENOL) 325 MG tablet Take 325 mg by mouth every 4 hours as needed. Maximum allowable Acetaminophen amount = 4 Grams (4000 mg) / 24 hours. Active gabapentin (NEURONTIN) 300 MG capsule Take 600 mg by mouth 3 times daily Active [id number]-[id number] ALS (RESOURCE OPTISOURCE MUTLIPLE VITAMIN WITH MINERALS) CHEW Take 1 Tab by mouth once daily. Active hydrocodone-acetami nophen (NORCO) 5-325 mg 5-325 mg half tablet Take 1 Tab by mouth every 4 hours as needed. Active DULoxetine (CYMBALTA) 30 MG capsule Take 60 mg by mouth once daily Active Tizanidine HCl 4 MG CAPS Take by mouth. Active methotrexate 2.5 MG tablet TAKE 7 TABLETS (2.5MG) BY ORAL ROUTE ONCE WEEKLY 2 11/03/2015 Active folic acid (FOLVITE) 1 MG tablet Take 1 mg by mouth once daily 5 11/09/2015 Active InFLIXimab (REMICADE IV) Active vitamin D, cholecalciferol, 2000 UNITS tablet Take 2,000 Units by mouth once daily Active Cyanocobalamin (VITAMIN B 12 PO) Take 2,000 mcg by mouth Two times a week Active biotin 5 MG tablet Take 5 mg by mouth once daily Active Active Problems Problem Noted Date Diagnosed Date Ankylosing spondylitis 12/14/2019 Anxiety 09/24/2012 Cervical spondylosis without myelopathy 05/07/20 11 Sacroiliitis, not elsewhere classified 1 Immunizations Name Administration Dates Next Due INFLUENZA VACCINE, QUADR. (F LUZONE; FLULAVAL; FLUARIX; AFLURIA QUADRIVALENT; 6MO+), 0.5 ML (IIV4) 04/08/2019 Family History Medical History Relation Name Comments Diabetes Father Hypercholesterolemia Father Hypertension Father Cancer Maternal Grandfather Stroke Maternal Grandfather Cancer Maternal Grandmother Depression Maternal Grandmother Diabetes Maternal Grandmother Heart Failure Maternal Grandmother Hypertension Maternal Grandmother Migraine Maternal Grandmother Stroke Mother Relation Name Status Comments Father Maternal Grandfather Maternal Grandmother Mother Social History Tobacco Use Types Packs/Day Years Used Date Smoking Tobacco: Former Cigarettes Q uit: 06/30/2002 Smokeless Tobacco: Never Alcohol Use Standard Drinks/Week Comments No 0 (1 standard drink = 0.6 oz pur e alcohol) Sex and Gender Information Value Date Recorded Sex Assigned at Not on file Gender Identity Not on file Sexual Orientation Not on file Last Filed Vital Signs Vital Sign Reading Time Taken Comments Blood Pressure 114/60 09/02/2018 2:18 PM BANK NOTE DESIGNER Pulse 77 09/02/2018 2:18 PM BANK NOTE DESIGNER Temperature 36.5 C (97.7 F) 09/27/2013 12:46 PM CDT Respiratory Rate 18 11/19/2012 4:06 PM CDT Oxygen Saturation 101% 11/18/2013 1:30 PM CDT Inhaled Oxygen Concentration - - Weight 85.6 kg (188 lb 12.8 oz) 09/02/2018 2:18 PM BANK NOTE DESIGNER Height 165.1 cm (5' 5 ) 09/02/2018 2:18 PM BANK NOTE DESIGNER Body Mass Index 31.42 09/02/2018 2:18 PM BANK NOTE DESIGNER Plan of Treatment Health Maintenance Due Date Last Done Comments COLOGUARD (AGES 45-75) - COLON CA SCREENING 1976 COLON MONITORING 1976 COLONOSCOPY - COLON CA SCREENING 1976 CT COLONOGRAPHY - COLON CA SCREENING 1976 Colorectal Cancer Screening 1976 FIT - COLON CA SCREENING 1976 FLEX SIG - COLON CA SCREENING 1976 LIPID TESTING 1976 MAMMOGRAM 1976 PAP SMEAR 1976 HIV SCREENING 09/11/1991 HEPATITIS C SCREENING 09/06/1994 DTAP/TDAP/TD VACCINES (1 - Tdap) 09/11/1995 HEPATITIS B VACCINE (1 of 3 - 19+ 3-dose series) 09/11/1995 SCREENING FOR DIABETES 09/02/2018 5, 11/18/2013, 11/19/2012, Additional history exists COVID-19 VACCINE ( season) 2024 DEPRESSION SCREENING 06/30/2024 INFLUENZA VACCINE (Season Ended) 2025 04/08/2019, 03/23/2018, 05/20/2016, Additional history exists ZOSTER VACCINE (1 of 2) 2026 HIB VACCINE Aged Out No longer eligi ble based on patient's age to complete this topic HPV VACCINE Aged Out No longer eligi ble based on patient's age to complete this topic MENINGOCOCCAL (Group B) VACCINE SHARED DECISION-MAKING Aged Out No longer eligible based on patient's age to complete this topic MENINGOCOCCAL GROUPS A/C/Y/W VACCINE Aged Out No longer eligible based on patient's age to complete this topic PNEUMOCOCCAL VACCINE Aged Out No long er eligible based on patient's age to complete this topic Procedures Procedure Name Priority Date/Time Associated Diagnosis Comments COMPREHENSIVE METABOLIC PANEL Routine 11/18/2014 2:03 PM CDT Bariatric surgery status Obesity Loss of weight Unspecified vitamin D deficiency Unspecified nutritional deficiency Unspecified vitamin deficiency Mineral deficiency, not elsewhere classified from Last 3 Months or Most Recently Relevant to Health Maintenance Results * COMPREHENSIVE METABOLIC PANEL (11/18/2014 2:03 PM CDT) Glucose 82 65 - 99 mg/dL [facility] ACCOUNT BILL BUN 13 6 - 20 mg/dL [facility] ACCOUNT BILL Creatinine 0.85 0.57 - 1.00 mg/dL [facility] ACCOUNT BILL eGFR by MDRD 87 >59 mL/min/1.7 3 [facility] ACCOUNT BILL eGFR by MDRD 101 >59 mL/min/1.7 3 [facility] ACCOUNT BILL BUN/Creatinine Ratio 15 8 - 20 [facility] ACCOUNT BILL Sodium 142 134 - 144 mmol/L [facility] ACCOUNT BILL Potassium 4.5 3.5 - 5.2 mmol/L [facility] ACCOUNT BILL Chloride 100 97 - 108 mmol/L [facility] ACCOUNT BILL CO2 25 18 - 29 mmol/L [facility] ACCOUNT BILL Calcium 9.9 8.7 - 10.2 mg/dL [facility] ACCOUNT BILL Protein Total 7.4 6.0 - 8.5 g/dL [facility] ACCOUNT BILL Albumin 4.9 3.5 - 5.5 g/dL [facility] ACCOUNT BILL Globulin Total 2.5 1.5 - 4.5 g/dL [facility] ACCOUNT BILL Albumin/Globulin Ratio 2.0 1.1 - 2.5 [facility] ACCOUNT BILL Bilirubin Total 0.5 0.0 - 1.2 mg/dL [facility] ACCOUNT BILL Alkaline Phosphatase 59 39 - 117 IU/L [facility] ACCOUNT BILL AST 15 0 - 40 IU/L [facility] ACCOUNT BILL ALT 14 0 - 32 IU/L [facility] ACCOUNT BILL Blood specimen (specimen) BLOOD SPECIMEN / Unknown 11/18/2014 2:03 PM CDT 11/18/2014 4:23 PM CDT Narrative Resulting Agency Comment [facility] [address] [id number] Zeenat Portillo APRN-[facility] - CHEMIS TRY ORDERABLES [facility] ACCOUNT BILL from Last 3 Months or Most Recently Relevant to Health Maintenance Advance Directives * FULL RESUSCITATION (Latest Code Status on File) Date Activated Date Inactivated Comments 11/18/2012 2:52 PM 11/19/2012 5:42 PM Care Teams Granite Worker Relationship Specialty Start Date End Date Talita Almaraz MD [address] [place] [address] [phone] PCP - General 07/10/18
--- OUTSIDE RECORDS SUMMARY | 2024-10-05 09:24 | XMS_ITS | Continuity of Care Document ---
Author Organization [facility] Address [address] [place] [id number] Insurance Providers Payer Plan Claims Address Claims Phone Policy Number Group Number Relation Employer Guarantor Name Guarantor Guarantor Address Guarantor Phone [employer] [address], [place] [address] tel:[phone] Self Stefany Kinney 1975 [address] [place] [address] [employer] [address], [place] [address] tel:[phone] Self Stefany Kinney 1975 [address], [place] [address] [employer] [address], [place] [address] tel:[phone] Self Stefany Kinney 1975 [address] [place] [address] Problems Condition ICD9 code ICD10 code SNOMED code Start Date End Date S tatus Encounter for screening for other metabolic disorders Z13.228 Results No Results Allergies, adverse reactions, alerts No known allergies and adverse reactions Medications No administered medications reported Vital Signs No vital signs reported Social History No smoking Hx information available
--- OUTSIDE RECORDS SUMMARY | 2024-10-05 09:24 | XMS_ITS | Clinical Summary ---
Author Organization [facility] Address [address] [place] [address] Phone Care Team Providers Care Logging Crew Foreman Name Role Phone Provider, Not On File Primary Care Provider Unav ailable Allergies Active Allergy Reactions Criticality Noted Date Comments Penicillins Swelling 09/18/2018 THROAT SWELLING [place] (Diagnostic) Anaphylaxis 09/04/2020 Medications methotrexate 2.5 MG Tablet Take 15 mg by mouth every 7 days Active HYDROcodone-betty taminophen (NORCO) 5-325 MG Tablet Take 1 Tab by mouth every 8 hours as needed for Moderate or more severe pain. Active tiZANidine (ZANAFLEX) 2 MG Tablet Take 2 mg by mouth 3 times daily. Active gabapentin (NEURONTIN) 600 MG Tablet Take 600 mg by mouth 3 times daily. Active inFLIXimab (REMICADE IV) by Intravenous route. Active DULoxetine (CYMBALTA) [address] Particles Take 60 mg by mouth daily. Active ondansetron (ZOFRAN) 4 MG Tablet Take 1 Tab by mouth every 8 hours as needed for Nausea - 1st line. 10 Tab 9 Active Additional Information Patient not taking.Reported on 09/04/2020 tamsulosin (FLOMAX) 0.4 MG Capsule Take 1 Cap by mouth daily. To facilitate passage of kidney stone 5 Cap 9 Active Additional Information Patient not taking.Reported on 09/04/2020 Ixekizumab (Taltz) 80 MG/ML Solution Auto-injector 80 mg by Subcutaneous route every 28 days. Takes on the 14 of each month Active BIOTIN FORTE PO Take 5,000 mcg by mouth daily. Active B Complex Vitamins (B COMPLEX PO) Take 1 mL by mouth daily. Active cetirizine-pseu doephedrine (ZYRTEC-D) 5-120 MG TABLET SR 12 HR Take 1 Tablet by mouth 2 times daily as needed. Active folic acid (FOLVITE) 1 MG Tablet Take 1 mg by mouth daily. Active Sulfamethoxazol e-Trimethoprim (SULFAMETHOXAZO LE-TMP DS PO) Take by mouth. A ctive albuterol 108 (90 Base) MCG/ACT Aerosol Solution take 2 Puffs by inhalation every 6 hours as needed for Wheezing or Cough. 1 Inhaler 1 Active guaiFENesin-cod eine (TUSSI-ORGANIDI N NR) 100-10 MG/5ML SyrupIndication s:Bronchitis,Br onchial asthma Take 5 mL by mouth every 4 hours as needed for Cough. 236 mL 1 Active methylPREDNISol one (MEDROL DOSPACK) 4 MG Tablet Therapy Pack See product package insert for dosing schedule 21 Tablet 4 Active Active Problems No known active problems Family History Medical History Relation Name Comments Diabetes Father Heart Disease Father Hypertension Father Other-comment Mother back surgeries Relation Name Status Comments Father Alive Mother Alive Social History Tobacco Use Types Packs/Day Years Used Date Smoking Tobacco: Former Cigarettes Q uit: 2009 Smokeless Tobacco: Never Alcohol Use Standard Drinks/Week Comments Not Currently 0 (1 standard drink = 0.6 oz pure alcohol) just has a couple drinks a year Comments No Sex and Gender Information Value Date Recorded Sex Assigned at Not on file Legal Sex Female 11:22 PM CDT Gender Identity Not on file Sexual Orientation Not on file Last Filed Vital Signs Vital Sign Reading Time Taken Comments Blood Pressure 132/83 07/15/2023 2:45 PM PANEL MACHINE OPERATOR Pulse 87 07/15/2023 2:45 PM PANEL MACHINE OPERATOR Temperature 35.7 C (96.2 F) 07/15/2023 12:10 PM PANEL MACHINE OPERATOR Respiratory Rate 18 07/15/2023 2:45 PM PANEL MACHINE OPERATOR Oxygen Saturation 100% 07/15/2023 2:45 PM PANEL MACHINE OPERATOR Inhaled Oxygen Concentration - - Weight 89.5 kg (197 lb 5 oz) 07/15/2023 12:10 PM PANEL MACHINE OPERATOR Height 165.1 cm (5' 5 ) 07/15/2023 12:10 PM PANEL MACHINE OPERATOR Body Mass Index 32.83 07/15/2023 12:10 PM PANEL MACHINE OPERATOR Plan of Treatment Health Maintenance Due Date Last Done Comments Hepatitis C Virus (HCV) Screening 1975 Mammogram 1976 SARS-COV-2 Immunization (#1) 1981 Hepatitis B Immunization (1 of 3 - 19+ 3-dose series) 09/11/1995 Pap Smear 1997 Cervical Cancer Screening (CCS) 2006 HPV/Cotest 2006 Discussion re Starting/Frequency of Mammograms 2016 Colonoscopy 2021 Colorectal Cancer Screening 2021 Influenza Immunization (#1) 02/29/202403/30, 03/23/2018, 04/21/2017, Additional history exists Respiratory Syncytial Virus (RSV) Immunization (Adult) (1 - 1-dose 75+ series) 09/11/2051 DTaP/Tdap/Td Immunization Discontinued 10/23/2022 TdaP Immunization Completed 10/23/2022 Meningococcal Immunization (ACWY) Aged Out No longer eligible based on patient's age to complete this topic Pneumococcal Immunization Combined Aged Out No longer eligible based on patient's age to complete this topic Rotavirus Immunization Aged Out No lo nger eligible based on patient's age to complete this topic Medical Devices Implanted Type Area [employer] Device Identifier Shelf Expiration Date Model / Serial / Lot Kit Neurostimulator 60cm Octrode Percutaneous 8 Eltrd Lead - [id number] Implanted:Qty: 1 on 09/15/2020 by Hiram Feliz MD at [facility] IMPLANT N/A: Spine Thoracic [employer] NEUROMODUL 05/10/2022 [id number] / [id number] / [id number] Kit Neurostimulator 60cm Octrode Percutaneous 8 Eltrd Lead - [id number] Implanted:Qty: 1 on 09/15/2020 by Hiram Feliz MD at [facility] IMPLANT N/A: Spine Thoracic [employer] NEUROMODUL 07/14/2022 [id number] / [id number] / [id number] Proclaim Xr 5 Implanted:Qty: 1 on 09/15/2020 by Hiram Feliz MD at [facility] Left: Back [employer] 05/22/2022 [id number] / [id number] / [id number] Insurance MEDICARE [employer] Care Teams Logging Crew Foreman Relationship Specialty Start Date End Date Provider, Not On File [place] PCP - General 07/15/23
--- OUTSIDE RECORDS SUMMARY | 2024-10-05 09:24 | XMS_ITS | Clinical Summary ---
Author Organization [facility] Address [address] [place] [address] Care Team Providers Care Waiter/Waitress Tourist Class Name Role Phone Unavailable Primary Care Provider Unavailabl e Social History Tobacco Use Types Packs/Day Years Used Date Smoking Tobacco: Never Assessed Comments Unknown Sex and Gender Information Value Date Recorded Sex Assigned at Not on file Legal Sex Female 7:45 PM CDT Gender Identity Not on file Sexual Orientation Not on file Plan of Treatment Health Maintenance Due Date Last Done Comments Cervical Cancer Screening Pa p Smear (Age 30 to 64) Every 3 Years 1976 Colorectal Cancer Screening Colonoscopy (10 Years) 1976 Annual Physical 09/11/1979 Hepatitis C 1994 DTaP, Tdap and Td Vaccines ( 1 - Tdap) 09/11/1995 Hepatitis B Vaccines (1 of 3 - 19+ 3-dose series) 09/11/1995 Cervical Cancer Screening Pa p with HPV Testing (Age 30 to 64) Every 5 Years 2006 Cervical Cancer Screening with HPV 2006 Mammogram Screening 2016 COVID-19 Vaccine (2023-2 5 season) 2024 Meningococcal B Vaccine Aged Out No l onger eligible based on patient's age to complete this topic Meningococcal Vaccine Aged Out No chemo manjeet eligible based on patient's age to complete this topic Pneumococcal Vaccine: Pediat rics (0 to 5 Years) and At-Risk Patients (6 to 64 Years) Aged Out No longer eligible b ased on patient's age to complete this topic RSV Immunizations Under 20 Months Aged Out No longer eligible based on patient's age to complete this topic
--- OUTSIDE RECORDS SUMMARY | 2024-10-05 09:24 | XMS_ITS ---
Author Organization [facility] Address [address] [facility] [facility] [address] [place] [address] Care Team Providers Care Welfare Manager Name Role Phone DavonChapo Primary Care Provider [phone] Karen aNvarro Unavailable [phone] Karen Navarro MD Unavailable Unavailable Allergies Allergen (clinical drug ingredient) Drug/Non Drug Allergy documented on EMR Reaction Allergy Type Onset Date Status Substance with penicillin structure and antibacterial mechanism of action (substance) Penicillins Unknown Drug Allergy 10/04/2017 Active Strawberries Unknown Allergy 10/15/2017 Active REASON FOR VISIT Infusion Simponi aria 4 vials YD. Medications Medication SIG (Take, Route, Frequency, Duration) Notes Start Date End Date Status DULoxetine HCl 60 MG TAKE 1 CAPSULE BY MOUTH EVERY DAY Orally Once a day for 90 days Active Erythromycin 5 MG/GM apply 1 cm ribbon into the lower conjunctival sac in the left eye by ophthalmic route once daily Ophthalmic 1 01/21/2023 Not-Taking SYRINGE WITH NEEDLE DISP 1 mL 25 gauge x 1 use as directed MISCELLANEOUS *Reorder from [employer] for eRx and Interaction Alerts* 10/28/2022 Not-Taking Methotrexate Sodium 2.5 MG TAKE 6 TABLETS BY MOUTH ONCE WEEKLY for 90 Active predniSONE 5 MG take 3 tablets by oral route daily for 7 days, then 2 tablets QD for 7 days, then 1 tablet QD for 7 days Oral 1 02/11/2023 Not-Taking Syringe 2-3 ML 3 ML Use one syringe to inject B-12 once a month for 90 days 11/12/2023 Active Gabapentin 600 MG TAKE 1 TABLET BY MOUTH THREE TIMES A DAY for 90 Active BD Disp Needle 25G X 1 as directed for weekly B12 injections for 30 days 11/06/2023 Not-Taking Levothyroxine Sodium 112 MCG 1 tablet in the morning on an empty stomach Orally Once a day for 90 days Active Folic Acid 1 MG 1 Oral daily for 90 days Active Cyanocobalamin 1000 MCG/ML INJECT 1 MILLILITER (1,000 MCG) BY INTRAMUSCULAR ROUTE ONCE A WEEK FOR 1 MONTH for 84 Active Multivitamin Adult take 1 capsule by oral route once Oral 1 Active Simponi Aria 50 MG/4ML as directed Intravenous Active Vital Signs Temperature 98.2 degrees Fahrenheit 09/30/19 25 Blood pressure systolic 122 mm Hg 09/30/19 25 Blood pressure diastolic 77 mm Hg 025 Heart Rate 71 /min 09/29/2024 Height 65 in 09/29/2024 Weight 209 lbs 09/29/2024 BMI 34.78 kg/m2 09/29/2024 Height-cm 165.10 cm 09/29/2024 Weight-kg 94.8 kg 09/29/2024 Encounters Encounter Location Date Provider Diagnosis [facility] [address] [facility] [address] [place] [address] 09/29/2024 Karen Navarro Ankylosing spondylit is M45.9 Assessments Encounter Date Diagnosis (ICD Code) Assessment Notes Treatment Notes Treatment Clinical Notes Section Notes 09/29/2024 Ankylosing spondylitis (ICD-10 - M45.9) Plan Of Treatment Next Appt Details Provider Name:Karen Navarro, 11/24 10:30:00 AM, [address] [facility] [address], [place], [address], Provider Name:Chapo Mays , 01/14/2025 10:00:00 AM, [address] [facility] [address], [place], [address], Provider Name:Karen Navarro, 01/19 10:30:00 AM, [address] [facility] [address], [place], [address], Progress Notes * Debby KINNEYOB:1975 ( 49 yo F)Acc No.[id number]:09/29/2024 Simponi Infusion Patient: Stefany NIELSON Provider: Amanda NAVARRO MD :1975 A ge:49 Y S ex:Female Date:09/29/2024 [address] [facility] Pcp:Chapo Mays Subjective: * Chief Complaints: * I nfusion Simponi aria 4 vials YD. * HPI: I nfusion: Infusion Record T ype of Infusion _ ____,Simponi Aria,?What is the dosage . 190mg dose. 10mg waste., H ow is the dose calculated . 2mg/kg, A uthorized by _ ____,Dr. Navarro, N umber of vials to reconstitute . 4, I nfusion type _ ____,Simponi Aria, A mount . 190mg, M anufacturer _ ___ Monica, E xpiration date 01/2027, L ot number _ __ [id number], S terile water (number of vials) . n/a, S terile water lot number N /A, s terile water MFG N /A. P re Infusion Assessment T B Screening Results PPD N /A, Q uantiferon TB Gold Results N egative on 09/02/2023, C hest Xray Results N /A, R ecent exposure to TB _ ____,N/A, A ny illness now _ ____,None. S kin Conditon D oes the patient has any skin condition n o. P revious Infusion D ate of last infusion 0 08/04/2024, P revious infusion type? ,Simponi Aria, R eaction N o, W as patient pre treated _ ____,N/A, R esponse to previous infusion _ ____. I V INSERTION C atheter brand _ ___ [id number]-[id number], Catherter Gauge _ ____,24 ga, N eedle Length _ ___,3/4 inch, I V site accessed?____ LAC, N umber of attempts to access vein/port 1 , P remedication _ ____ n/a, T gilles given _ __ n/a. P ATIENT MONITORING T gilles infusion initated _ __ 1034, Rate of infusion _ __ 200cc/hour, I nfusion end time: _ ____ 1105. D ISPOSITION?Time IV discontinued: _ __ 1107, A mount of drug administered _ ___ 190mg, N ext Infusion Date Scheduled: 0 11/24/2024. * Medical History: * Surgical History: G astric bypass, laparoscopic; [id number]: left knee scope; cleaned up cartilage, Date of Procedure: 1997; 9281-13-07Sciziyihscpen, Date of Procedure: 1986; 3166-31-13Ayts Bladder Surgery, Date of Procedure: 2011; 3315-39-48Wgaxkpg cyst removal: right side, Date of Procedure: 2014; 5995-47-40Uffmtd tunnel release, right foot, Date of Procedure: 2010; 8358-89-57ygmhezu sleeve; 9937-23-33Dcxkzeytk Nerve Decompression/Release: Done for occipital neuralgia; 3423-58-00ebocqh cord stimulator implant; 2022-10-23 * Hospitalization/Major Diagno stic Procedure: * Family History: F ather: Diabetes , Heart Disease Notes: AL at age 51y , Hypertension . M igrated Family History: Cancer Notes: grandfather- lung and prostate , Depression Notes: grandmother , Stroke Notes: grandmother . M other: Arthritis . * Social History: M igrated Social History: M igrated Social History: :: No Children , :: non smoker , Exercise :: Walks :: note : 04/25/2021 - 2 times a week, Marital Status :: , Occupation :: Disabled :: note : - [employer] 01/12/2018 , Substance Use :: Caffeine , Substance Use :: Denies ETOH use , Substance Use :: Denies illicit substance abuse , Substance Use :: rare alcohol usage , Substance Use :: Tea , Substance Use :: Tobacco :: Former :: note : quit 2010. * Medications: T akingMultivitamin Adult Tablet take 1 capsule by oral route once Oral 1 Cyanocobalamin 1000 MCG/ML Solution INJECT 1 MILLILITER (1,000 MCG) BY INTRAMUSCULAR ROUTE ONCE A WEEK FOR 1 MONTH Simponi Aria 50 MG/4ML Solution as directed Intravenous Folic Acid 1 MG Tablet 1 Oral daily Gabapentin 600 MG Tablet TAKE 1 TABLET BY MOUTH THREE TIMES A DAY Syringe 2-3 ML 3 ML Miscellaneous Use one syringe to inject B- 12 once a month Levothyroxine Sodium 112 MCG Tablet 1 tablet in the morning on an empty stomach Orally Once a day Methotrexate Sodium 2.5 MG Tablet TAKE 6 TABLETS BY MOUTH ONCE WEEKLY DULoxetine HCl 60 MG Capsule Delayed Release Particles TAKE 1 CAPSULE BY MOUTH EVERY DAY Orally Once a day Taking Multivitamin Adult Tablet take 1 capsule by oral route once Oral 1 Taking Cyanocobalamin 1000 MCG/ML Solution INJECT 1 MILLILITER (1,000 MCG) BY INTRAMUSCULAR ROUTE ONCE A WEEK FOR 1 MONTH Taking Simponi Aria 50 MG/4ML Solution as directed Intravenous Taking Folic Acid 1 MG Tablet 1 Oral daily Taking Gabapentin 600 MG Tablet TAKE 1 TABLET BY MOUTH THREE TIMES A DAY Taking Syringe 2-3 ML 3 ML Miscellaneous Use one syringe to inject B-12 once a month Taking Levothyroxine Sodium 112 MCG Tablet 1 tablet in the morning on an empty stomach Orally Once a day Taking Methotrexate Sodium 2.5 MG Tablet TAKE 6 TABLETS BY MOUTH ONCE WEEKLY Taking DULoxetine HCl 60 MG Capsule Delayed Release Particles TAKE 1 CAPSULE BY MOUTH EVERY DAY Orally Once a day Not-TakingBD Disp Needle 25G X 1 Miscellaneous as directed for weekly B12 injections SYRINGE WITH NEEDLE DISP 1 mL 25 gauge x 1 SYRINGE, EMPTY DISPOSABLE use as directed MISCELLANEOUS , Notes to Pharmacist: *Reorder from [facility] for eRx and Interaction Alerts*Erythromycin 5 MG/GM Ointment apply 1 cm ribbon into the lower conjunctival sac in the left eye by ophthalmic route once daily Ophthalmic 1 predniSONE 5 MG Tablet take 3 tablets by oral route daily for 7 days, then 2 tablets QD for 7 days, then 1 tablet QD for 7 days Oral 1 Not-Taking BD Disp Needle 25G X 1 Miscellaneous as directed for weekly B12 injections Not-Taking SYRINGE WITH NEEDLE DISP 1 mL 25 gauge x 1 SYRINGE, EMPTY DISPOSABLE use as directed MISCELLANEOUS , Notes to Pharmacist: *[facility] for eRx and Interaction Alerts*Not-Taking Erythromycin 5 MG/GM Ointment apply 1 cm ribbon into the lower conjunctival sac in the left eye by ophthalmic route once daily Ophthalmic 1 Not-Taking predniSONE 5 MG Tablet take 3 tablets by oral route daily for 7 days, then 2 tablets QD for 7 days, then 1 tablet QD for 7 days Oral 1 * Allergies: S trawberries: Allergy - Onset Date 10/15/2017Penicillins: Allergy - Onset Date 10/04/2017 Objective: * Vitals: B P:122/77mm Hg, HR:71/min, Temp:98.2F, Wt:209lbs, Wt-k.8 kg, Ht: 65 in, Ht- cm: 165.10 cm, BMI:34.78Index, Body Surface Area: 2.08. Assessment: * Assessment: 1. A nkylosing spondylitis - M45.9 (Primary) Plan: * Treatment: * Procedure Codes: J 1602 INJECTION GOLIMUMAB 1 MG FOR IV USE, Units: 190.00 01176 THER/PROPH/DIAG IV INF, [id number] INJECTION GOLIMUMAB 1 MG FOR IV USE, Units: 10.00 , Modifiers: JW * Billing Information: * Visit Code: * Procedure Codes: J1602 INJECTION GOLIMUMAB 1 MG FOR IV USE. Units: 190.00. 46025 THER/PROPH/DIAG IV INF, INIT. J1602 INJECTION GOLIMUMAB 1 MG FOR IV USE. Units: 10.00. Modifiers: JW * Electronically co-signed by Karen Navarro MD on 09/29/2024 at 12:20 PM CDT Sign off status: Completed true * Provider: Amanda NAVARRO MD Date: 09/29/2024 Generated for Teja bloom/Roman/Vinh on: 10/05/2024 09:24 AM CDT History and Physical Notes * HPI (History of Present Illness) Category Sub-Category Detail Notes Category Not es Infusion Infusion Record Type of Infusion: ,Simponi Aria What is the dosage: . 190mg dose. 10mg w aste. How is the dose calculated: . 2mg/kg Authorized by: Dr. Navarro Number of vials to reconstitute: . 4 Infusion type: ,Simponi Aria Amount: . 190mg Drive Away Driver: ____ Monica Expiration date: 01/2027 Lot number: ___ [id number] Sterile water (number of vials): . n/a Sterile water lot number: N/A sterile water MFG: N/A Pre Infusion Assessment TB Screening Results PPD : N/A Quantiferon TB Gold Results: Negative on 09/02/2023 Chest Xray Results: N/A Recent exposure to TB: ,N/A Any illness now: ,None Skin Conditon Does the patient has any skin co ndition: no Previous Infusion Date of last infusion: 025 Previous infusion type: ,Simsoledadi Ar ia Reaction: No Was patient pre treated: ,N/A Response to previous infusion: IV INSERTION Catheter brand: ____ Saf-T-Intim a Catherter Gauge: ,24 ga Needle Length: ____,3/4 inch IV site accessed: ____ LAC Number of attempts to access vein/port: 1 Premedication: n/a Time given: ___ n/a PATIENT MONITORING Time infusion initated: ___ 1 035 Rate of infusion: ___ 200cc/hour Infusion end time:: 1105 DISPOSITION Time IV discontinued:: ___ 1107 Amount of drug administered: ____ 190mg Next Infusion Date Scheduled:: 5
--- OUTSIDE RECORDS SUMMARY | 2024-10-05 09:24 | XMS_ITS ---
Author Organization [facility] Address [address] [place] [address] Care Team Providers Care Client Services Representative Name Role Phone DavonChapo Primary Care Provider Karen Navarro Unavailable [phone] Karen Navarro MD Unavailable Unavailable Allergies Allergen (clinical drug ingredient) Drug/Non Drug Allergy documented on EMR Reaction Allergy Type Onset Date Status Substance with penicillin structure and antibacterial mechanism of action (substance) Penicillins Unknown Drug Allergy 10/04/2017 Active Strawberries Unknown Allergy 10/15/2017 Active REASON FOR VISIT infusion pt, ankylosing spondylitis Medications Medication SIG (Take, Route, Frequency, Duration) Notes Start Date End Date Status DULoxetine HCl 60 MG TAKE 1 CAPSULE BY MOUTH EVERY DAY for 90 Active Methotrexate Sodium 2.5 MG TAKE 6 TABLETS BY MOUTH ONCE WEEKLY for 90 Active predniSONE 5 MG take 3 tablets by oral route daily for 7 days, then 2 tablets QD for 7 days, then 1 tablet QD for 7 days Oral 1 02/11/2023 Not-Taking Erythromycin 5 MG/GM apply 1 cm ribbon into the lower conjunctival sac in the left eye by ophthalmic route once daily Ophthalmic 1 01/21/2023 Not-Taking SYRINGE WITH NEEDLE DISP 1 mL 25 gauge x 1 use as directed MISCELLANEOUS *Reorder from [employer] for eRx and Interaction Alerts* 10/28/2022 Not-Taking Syringe 2-3 ML 3 ML Use one syringe to inject B-12 once a month for 90 days 11/12/2023 Active Gabapentin 600 MG TAKE 1 TABLET BY MOUTH THREE TIMES A DAY for 90 Active Folic Acid 1 MG 1 Oral daily for 90 days Active BD Disp Needle 25G X 1 as directed for weekly B12 injections for 30 days 11/06/2023 Not-Taking Levothyroxine Sodium 112 MCG 1 tablet in the morning on an empty stomach Orally Once a day for 90 days Active Simponi Aria 50 MG/4ML as directed Intravenous Active Cyanocobalamin 1000 MCG/ML INJECT 1 MILLILITER (1,000 MCG) BY INTRAMUSCULAR ROUTE ONCE A WEEK FOR 1 MONTH for 84 Active Multivitamin Adult take 1 capsule by oral route once Oral 1 Active Social History Tobacco Use: Social History Observation Description Date Details (start date - stop date) Never Smoker NA - NA Tobacco Control (Standard) Question Answer Notes Tobacco use: Nonsmoker Encounters Encounter Location Date Provider Diagnosis [facility] [address] [place] [address] 08/04/2024 Karen Navarro Ankylosing spondylit is of unspecified sites in spine M45.9 ; Ankylosing spondylitis of multiple sites in spine M45.0 ; Lumbar back pain M54.50 ; Psoriasis L40.9 ; High risk medication use Z79.899 and Neck stiffness M43.6 Assessments Encounter Date Diagnosis (ICD Code) Assessment Notes Treatment Notes Treatment Clinical Notes Section Notes 08/04/2024 Ankylosing spondylitis of unspecified sites in spine (ICD-10 - M45.9) simponi aria and methtorexate have helped a lot, will continue both, start neck exercise, instructions given 08/04/2024 Ankylosing spondylitis of multiple sites in spine (ICD-10 - M45.0) simponi aria and methtorexate have helped a lot, will continue both, start neck exercise, instructions given 08/04/2024 Lumbar back pain (ICD-10 - M54.50) simponi aria and methtorexate have helped a lot, will continue both, start neck exercise, instructions given 08/04/2024 Psoriasis (ICD-10 - L40.9) simponi aria and methtorexate have helped a lot, will continue both, start neck exercise, instructions given 08/04/2024 High risk medication use (ICD-10 - Z79.899) simponi aria and methtorexate have helped a lot, will continue both, start neck exercise, instructions given 08/04/2024 Neck stiffness (ICD-10 - M43.6) simponi aria and methtorexate have helped a lot, will continue both, start neck exercise, instructions given Plan Of Treatment Next Appt Details Follow Up: 2 Months, Reason: Provider Name:Karen Navarro, 11/24 10:30:00 AM, [address], [place], [address], Provider Name:Chapo Mays , 01/14/2025 10:00:00 AM, [address], [place], [address], Provider Name:Karen Rohith, 01/19 10:30:00 AM, [address], [place], [address], Progress Notes * Chloé KINNEYKearaOB:1975 ( 48 yo F)Acc No.[id number]:08/04/2024 Progress Notes Patient: Stefany NIELSON Provider: Amanda NAVARRO MD :1975 A ge:48 Y S ex:Female Date:08/04/2024 Address:[facility] [address] [facility] Pcp:Chapo Mays Subjective: * Chief Complaints: * I nfusion ptAnkylosing spondylitis * HPI: G eneral Follow up: Ankylosing spondylitis: on MTX 15mg/wk (higher dose caused elevated liver enzymes), on simponi aria infusion, i t has helped a lot, neck feels stiff, sees ortho for left knee, receiving PT, am stiffness: 1 hour, psoriasis, no active lesions, simponi aria helping history of gastric bypass surgery, NSAIDs are contraindicated saw pain specialist (Dr. Feliz), was on [place]. has a spinal stimulator, on Cymbalta and gabapentin diagnosed with ankylosing spondylitis in 2010 (+HLA-B27 and elevated CRP), took naproxen, ibuprofen and sulfasalsazine before, did not work and bothered stomach, had gastric bypass surgery in 2012, not allowed to take NSAIDs since then, humira stopped working. insurance stopped covering remicade, taljuan david stopped working, failed avsola. * ROS: G eneral / Constitutional: Patient denies f nasim, chills. P atient complains of?fatigue. M usculoskeletal: Patient complains of s ee HPI. S kin: Patient denies r glenda. * Medical History: * Surgical History: G astric bypass, laparoscopic; 9330-63-92tayw: left knee scope; cleaned up cartilage, Date of Procedure: 1997; 5438-40-40Cbslxnciidpkk, Date of Procedure: 1986; 6295-94-52Ndfs Bladder Surgery, Date of Procedure: 2011; 6394-52-74Gwtiqvm cyst removal: right side, Date of Procedure: 2014; 1588-94-27Yaltmo tunnel release, right foot, Date of Procedure: 2010; 9620-73-99bggyiny sleeve; 0187-33-33Jwyingcdb Nerve Decompression/Release: Done for occipital neuralgia; 6555-24-09pcvypc cord stimulator implant; 2022-10-23 * Hospitalization/Major Diagno stic Procedure: * Family History: F ather: Diabetes , Heart Disease Notes: ME at age 51y , Hypertension . M igrated Family History: Cancer Notes: grandfather- lung and prostate , Depression Notes: grandmother , Stroke Notes: grandmother . M other: Arthritis . * Social History: T obacco Use: T obacco Control (Standard) T obacco use: N onsmoker. M igrated Social History: M igrated Social [...] TAKE 1 CAPSULE BY MOUTH EVERY DAY Taking Multivitamin Adult Tablet take 1 capsule [...] TAKE 1 CAPSULE BY MOUTH EVERY DAY Not-TakingBD Disp Needle 25G X 1 Miscellaneous as directed for weekly B12 injections SYRINGE WITH NEEDLE DISP 1 mL 25 gauge x 1 SYRINGE, EMPTY DISPOSABLE use as directed MISCELLANEOUS , Notes to Pharmacist: *Reorder from [facility] for eRx and Interaction Alerts*Erythromycin 5 MG/GM [...] MISCELLANEOUS , Notes to Pharmacist: *Reorder from [employer] for eRx and Interaction Alerts*Not- Taking Erythromycin 5 MG/GM Ointment apply 1 cm [...] Onset Date 10/15/2017Penicillins: Allergy - Onset Date 10/04/2017no[Allergies Verified] Objective: * Vitals: * Examination: G eneral Examination: General appearance: a lert, well-nourished and in no acute distress. Head: n ormocephalic, atraumatic. Eyes: n ormal. Skin: m ild psoriatic lesion on scalp. Lungs: r espiratory effort normal. N eurology: Speech: n ormal. P sychiatry: Affect / mood: a ppropriate. R heumatology: n o joint tenderness, mild pain in cervical spine with range of motion. Assessment: * Assessment: 1. A nkylosing spondylitis of unspecified sites in spine - M45.9 (Primary) S pecify :Src Problem: Ankylosing spondylitis 2 . A nkylosing spondylitis of multiple sites in spine - M45.0 ?3. L umbar back pain - M54.50 4 . P soriasis - L40.9 5 . High risk medication use - Z79.899 6 . N rod stiffness - M43.6 ? simponi aria and methtorexat e have helped a lot, will continue both, start neck exercise, instructions given Plan: * Treatment: * Procedure Codes: * Follow Up: 2 Months * Billing Information: * Visit Code: 67698 Office Visit, Est Pt., Level 4. Modifiers: 25 * Procedure Codes: * MBLER CORNCOB PIPES Sign off status: Completed true * Provider: Amanda NAVARRO MD Date: 0 08/04/2024 Generated for Teja bloom/Roman/Vinh on: 0 10/05/2024 09:24 AM CDT History and Physical Notes * HPI (History of Present Illness) Category Sub-Category Detail Notes Category Not es General Follow up Ankylosing spondylitis: on MTX 15mg/wk (higher dose caused elevated liver enzymes), on simponi aria infusion, it has helped a lot, neck feels stiff, sees ortho for left knee, receiving PT, am stiffness: 1 hour, psoriasis, no active lesions, simponi aria helping history of gastric bypass surgery, NSAIDs are contraindicated saw pain specialist (Dr. Feliz), was on [place]. has a spinal stimulator, on Cymbalta and gabapentin diagnosed with ankylosing spondylitis in 2010 (+HLA-B27 and elevated CRP), took naproxen, ibuprofen and sulfasalsazine before, did not work and bothered stomach, had gastric bypass surgery in 2012, not allowed to take NSAIDs since then, humira stopped working. insurance stopped covering remicade, jessica stopped working, failed avsola Examination Category Sub-Category Detail Notes Category Not es Rheumatology no joint tenderness, mild pain in cervical spine with range of motion Neurology Speech: normal Psychiatry Affect / mood: appropriate General Examination General appearance: alert, w ell-nourished and in no acute distress Head: normocephalic, atrau matic Eyes: normal Lungs: respiratory effort n ormal Skin: mild psoriatic lesio n on scalp
--- OUTSIDE RECORDS SUMMARY | 2024-10-05 09:24 | XMS_ITS | Encounter Summary ---
Author Organization [facility] Address [address] [place] [address] Care Team Providers Care Swiss Machinist Name Role Phone Talita Almaraz MD Primary Care Provider Encounter Details Date Type Department Care Team (Late st Contact Info) Description 03/06/2023 Lab Requisition [facility] - DermPath Lab [address] [place] [id number] Shar Humhpreys MD [address] [place] [address] Social History Tobacco Use Types Packs/Day Years Used Date Smoking Tobacco: Former Cigarettes Q uit: 06/30/2002 Smokeless Tobacco: Never Alcohol Use Standard Drinks/Week Comments No 0 (1 standard drink = 0.6 oz pur e alcohol) Sex and Gender Information Value Date Recorded Sex Assigned at Not on file Gender Identity Not on file Sexual Orientation Not on file documented as of this encounter Plan of Treatment Not on file documented as of this encounter Procedures Procedure Name Priority Date/Time Associated Diagnosis Comments DERMATOPATHOLOGY Routine 03/06/2023 3:33 AM CDT documented in this encounter Results * DERMATOPATHOLOGY (03/06/2023 3:33 AM CDT) Case Report Dermatopathology Report Case: [id number] Authorizing Provider: Shar Humphreys MD Collected: 03/06/2023 03:33 AM Ordering Location: [facility] Derm[facility] Lab Received: 03/06/2023 04:50 PM Pathologist: Olga Gomez MD Specimen: Skin, left arm 1:11 PM [facility] DERMATOPATHOLOGY [facility]OR[facility] Final Diagnosis Specimen A. 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 The specimen consists of a non-oriented ellipse of skin measuring 49l66w8 mm. The epidermal surface is unremarkable. The margin is inked green. The 12 o'clock and 6 o'clock tips are submitted in cassette 1. The remainder of the ellipse is serially sectioned and submitted in cassette 2-3. Jar 0. 1:11 PM [facility] DERMATOPATHOLOGY [facility]OR[facility] Microscopic Description Specimen A. SKIN, left arm: There is a dermal proliferation composed of fascicles of spindled and epithelioid cells in a haphazard array among coarse collagen bundles with trapping of collagen at the periphery of the proliferation. The proliferation focally infiltrates the subcutaneous fat septa. This lesion approximates one lateral margin of the specimen in block 2. 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 Given that cellular dermatofibromas are more likely to recur and this lesion approximates a lateral margin, consideration may be given to complete but conservative removal to reduce the risk of recurrence. 1:11 PM [facility] DERMATOPATHOLOGY [facility]OR[facility] Disclaimer An external and internal positive and negative controls are appropriate for the histochemical, immunohistochemical and immunofluorescence stain(s) in this case (if any), except where stated explicitly. The performance characteristics of the stain(s) cited in this report were developed and its performance characteristic determined by the Dermatopathology Laboratory at [facility], directed by Dr. Imer Aponte. These tests need not be, and therefore are not, approved by the [place] Food and Drug Administration. The tests are used for clinical purposes. Billing Codes Specimen Charges Stain Charges 05845 1 3 1:11 PM CDT DERMATOPATHOLOGY LABORATORY Embedded Images 3 1:11 PM CDT DERMATOPATHOLOGY LABORATORY Pathology/Cytolo gy TISSUE SPECIMEN FROM SKIN / Unknown 03/06/2023 3:33 AM CDT 03/06/2023 4:50 PM CDT Shar Humphreys MD LAB - PATHOLOGY/CYTO LOGY ORDERABLES DERMATOPATHOLOGY LABORATORY [facility] - Department of Dermatology [facility] Medicine [address] [place] [address], [address] [phone] documented in this encounter Visit Diagnoses Not on filedocumented in this encounter Care Teams Swiss Machinist Relationship Specialty Start Date End Date Talita Almaraz MD [address] [place] [phone] PCP - General 07/10/18 documented as of this encounter
--- OUTSIDE RECORDS SUMMARY | 2024-10-05 09:25 | XMS_ITS | Referral Summary ---
Author Organization [facility] Address [address] [place] [address] Care Team Providers Care Binder Cutter Name Role Phone Chapo Mays MD Primary Care Provider Encounters Date Type Department Care Team Description 07/09/2024 Orders Only [facility] Orthopedic and Sports Medicine [address] [place] [phone] Bandar Brooks MD It band syndrome, left (Primary Dx); Chronic pain of left knee; Complex tear of medial meniscus of left knee as current injury, initial encounter; Other tear of lateral meniscus of left knee as current injury, initial encounter; Left leg weakness; Lateral knee pain, left; Instability of left knee joint 07/09/2024 8:40 AM PIECER UP Ancillary Procedure [facility] Imaging at [address] [phone] 07/09/2024 8:35 AM PIECER UP Ancillary Procedure [facility] Imaging at [address] [phone] 07/09/2024 8:45 AM PIECER UP Office Visit [facility] Orthopedic and Sports Medicine [address] [place] [phone] Bandar Brooks MD Other tear of lateral meniscus of left knee as current injury, initial encounter (Primary Dx); Chronic pain of left knee; Complex tear of medial meniscus of left knee as current injury, initial encounter; Left leg weakness; It band syndrome, left from Last 3 Months Allergies Active Allergy Reactions Criticality Noted Date Comments Adhesive Itching Low 06/20/2011 Peels skin off/ paper tape is OK Penicillins Shortness of breath,Swelling,Unknown High 03/28/2011 Throat swells up/ can't breathe THROAT SWELLING [place] Anaphylaxis,Unknown High 06/20/2011 Medications methotrexate 2.5 mg tablet TAKE 7 TABLETS (2.5MG) BY ORAL ROUTE ONCE WEEKLY 35 2 6 Active gabapentin (NEURONTIN) 600 mg tablet TAKE 1 TABLET BY MOUTH 3 TIMES A DAY 270 2 5 Active folic acid (FOLVITE) 1 mg tablet TAKE ONE TABLET BY MOUTH DAILY 90 tablet 1 8 Active cyanocobalamin- cobamamide 5,000-100 mcg lozenge Active cetirizine (ZyrTEC) 10 mg tablet Take 1 tablet (10 mg total) by mouth daily Active DULoxetine DR (CYMBALTA) 60 mg capsule 1 Active cetirizine-pseu doephedrine ER (ZyrTEC-D) 5-120 mg per 12 hr tablet Take 1 tablet by mouth 2 (two) times a day as needed Active infliximab-axxq (AVSOLA IV) 3 Active nortriptyline (PAMELOR) 25 mg capsuleIndicati ons:Chronic migraine without aura without status migrainosus, not intractable,Num bness and tingling Take 1 capsule (25 mg total) by mouth nightly 30 capsule 5 3 Active golimumab (Simponi ARIA) 12.5 mg/mL solution Infuse into a venous catheter Active cyanocobalamin, vitamin B-12, 1,000 mcg/mL kit Inject 1,000 mcg as directed every 30 (thirty) days Active pyridoxine (VITAMIN B-6) 50 mg tablet Take 1 tablet (50 mg total) by mouth daily Active levothyroxine (SYNTHROID) 112 mcg tablet Take 1 tablet (112 mcg total) by mouth 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 Agustin Bedoya- trialed cyclopentolate, prednisolone and diflurprednate as well as dry eye and blepharitis therapies without any improvement -Pertinent medical hx: *Ankylosing spondylitis- managed with methotrexate, ixekizumab, gabapentin, and spinal cord stimulator *Chronic migraines- 2/2 occipital neuralgia and cured with surgical procedure on left side of the brain November 2021 *Allergies- denies any chronic sinus issues, managed w/ OTC meds *Probable MS- 2 lesions were found on previous MRI but they were old , no other symptoms *Arachnoid cyst in the brain- observation per patient -No history of uveitis or previous trauma to the eyes -Ocular health exam unremarkable today -[facility] OD, 20/20 OS -OCT nerve today shows no edema or thinning of the RNFL w/ robust GCC -[place] Assessment & Plan (09/25/2022 9:35 AM CDT): Educated patient on unremarkable ocular health exam. Onset of pain matches up with procedure performed on the left side of the brain ~1 month prior. Discussed with patient this is most likely a nerve issue 2/2 that procedure. She does not have a neurologist at this time and her PCP recently retired. She would like a referral to a new internal medicine doctor, preferably in [place]. Referral to internal med for further workup, may need neurology consult but will refer to PCP. Patient may return prn, continue comprehensive care w/ Dr. Bedoya. Lattice degeneration of retina, left eye 023 Assessment & Plan (09/25/2022 9:59 AM CDT): Educated patient, retina intact 360 today. No signs of any holes/tears/detachments. Discussed return precautions including increase in floaters, new or worsening flashes of light, or curtain/veil over vision. RTC immediately if any occur, otherwise continue comprehensive care w/ Dr. Bedoya. Multiple sclerosis 09/04/2020 Elevated liver enzymes 07/11/2017 High risk medication use 01/09/2017 Chronic low back pain without sciatica 7 Assessment & Plan (06/08/2020 3:18 PM PIECER UP): Ms. Kinney has chronic thoracic and lumbar spine pain. She has no signs myelopathy, radiculopathy or neurogenic claudication. Upon my review of her MRI of the cervical, thoracic and lumbar spine she has no pathology that would benefit from surgical intervention. She does have some asymptomatic moderate stenosis at C5-6. Given her chronic thoracic and lumbar spine pain with no surgically amenable solution, a spinal cord stimulator is a very reasonable option at this point. Chronic pain of right thumb 01/09/2017 Former cigarette smoker 05/22/2015 Overview (10/03/2016): Ex-cigarette smoker Chronic migraine without aura 05/04/2015 Overview (10/03/2016): Chronic migraine without aura Assessment & Plan (02/20/2023 2:36 PM CDT): Stefany Kinney presents today regarding migraine headaches. She has been suffering with a chronic daily headache with migraine features since 06/2020. She has trialed multiple preventative therapies with no improvement in her headache pattern. She does have red flag symptoms of fevers, 100-102 degrees. - Denies that she has had an infectious work-up with her PCP. The headaches have been present prior to this fever as well. She has recently started to note more symptoms associated with her migraine pattern including blurry vision of the left eye. She has also started to note tinnitus that onset 2 months ago. Plan: 1. Headache diary 2. Preventative: initiate nortriptyline 25mg nightly 3. MRI of the brain to evaluate for any vascular or structural cause to her headache pattern. 4. Limit caffeine intake 5. Encouraged regular exercise and well-balanced diet 6. Encouraged adequate water intake 7. Follow up 2-months At today s visit migraine education was performed. We discussed avoidance of migraine triggers and non-medicinal strategies for preventing migraines. Topics of discussion included improved sleep hygiene, healthy diet, and stress reduction techniques. We also discussed the importance of avoiding medication overuse, as this can promote analgesic rebound headache. Pain of hand 05/03/2015 Overview (10/03/2016): Hand pain Ankylosing spondylitis 05/03/2015 Overview (10/03/2016): Ankylosing spondylitis Arachnoid cyst 05/03/2015 Overview (10/03/2016): Arachnoid cyst Assessment & Plan (02/20/2023 2:36 PM CDT): Will plan to evaluate with an MRI of the brain with and without contrast for any changes that could be contributing to her neurologic symptoms. Osteoarthritis 05/03/2015 Overview (10/03/2016): Osteoarthritis Degeneration of intervertebral disc 05/03/2015 Overview (10/03/2016): Degenerative disc disease Anxiety 09/24/2012 Cervical spondylosis without myelopathy 05/07/20 11 Sacroiliitis, not elsewhere classified 1 Social History Tobacco Use Types Packs/Day Years Used Date Smoking Tobacco: Former Cigarettes Smokeless Tobacco: Never Tobacco Cessation:Counseling Given: Not Answered Alcohol Use Standard Drinks/Week Comments Yes 0 (1 standard drink = 0.6 oz pur e alcohol) AUDIT-C Answer Date Recorded Q1: How often do you have a drink containing alc ohol? Monthly or less 07/09/2024 Q2: How many drinks containi ng alcohol do you have on a typical day when you are drinking? 1 or 2 07/09/2024 Q3: How often do you have si x or more drinks on one occasion? Less than monthly 07/09/2024 PHQ-2 Answer Date Recorded PHQ-2 Total Score (If total score is 3 or more points, staff should administer the PHQ-9) 0 06/08/2020 Comments No Sex and Gender Information Value Date Recorded Sex Assigned at Not on file Legal Sex Female 1:34 AM PIECER UP Gender Identity Female 09/16/2020 8:53 AM CDT Sexual Orientation Straight 09/16/2020 8: 53 AM CDT Occupation Industry Job Start Date Job End Date Disabled Not on file Not on file Not on file Last Filed Vital Signs Vital Sign Reading Time Taken Comments Blood Pressure 133/84 07/09/2024 8:42 AM PIECER UP Pulse 82 07/09/2024 8:42 AM PIECER UP Temperature 36.3 C (97.3 F) 11/16/2020 11:37 AM CDT Respiratory Rate 14 11/16/2020 1:29 PM CDT Oxygen Saturation 100% 01/09/2023 7:54 AM CDT Inhaled Oxygen Concentration - - Weight 93.2 kg (205 lb 6.4 oz) 07/09/2024 8:42 A M PIECER UP Height 165.1 cm (5' 5 ) 07/09/2024 8:42 AM PIECER UP Body Mass Index 34.18 07/09/2024 8:42 AM PIECER UP Plan of Treatment Not on file Medical Devices Implanted Type Area Polarity Tester Device Identifier Shelf Expiration Date Model / Serial / Lot Neurostimula tor- Implanted: by Hiram Feliz MD (Quantity not on file) Neurostimulator N/A: Spine Thoracic [employer] 3660 / [id number] / Procedures Procedure Name Priority Date/Time Associated Diagnosis Comments XR KNEE LEFT 4 OR MORE VIEWS Schedule Routine, Read Routine (OP Routine) 07/09/2024 8:42 AM PIECER UP Chronic pain of left knee XR PELVIS 1 OR 2 VIEWS Schedule Routine, Read Routine (OP Routine) 07/09/2024 8:41 AM PIECER UP Chronic pain of left knee SERUM HEPATITIS C AB Routine 07/14/2015 11:34 AM PIECER UP from Last 3 Months or Most Recently Relevant to Health Maintenance Results * XR Knee Left 4 or More Views (07/09/2024 8:42 AM PIECER UP) Anatomical Region Laterality Modality Lower Extremities, Knee Left Digital Radiography Narrative 07/09/2024 9:26 AM PIECER UP Four views left knee shows mild degenerative changes medial and lateral compartments moderate patellofemoral joint arthrosis with mild tilt us Bandar Brooks MD IMG XR PROCEDURES Final Resu lt * XR Pelvis 1 or 2 Views (07/09/2024 8:41 AM PIECER UP) Anatomical Region Laterality Modality Body, Pelvis N/A Digital Radiogra phy Narrative 07/09/2024 9:25 AM PIECER UP AP pelvis shows mild degenerative changes bilateral hips otherwise well-preserved joint spaces no fractures us Bandar Brooks MD IMG XR PROCEDURES Final Resu lt * Serum Hepatitis C ab (07/14/2015 11:34 AM PIECER UP) HCV ab Negative Negative HISTORICAL RESULTS Serum 07/14/2015 11:3 4 AM PIECER UP Karen Newberry MD LAB BLOOD ORDERABLES Final Resul t HISTORICAL RESULTS from Last 3 Months or Most Recently Relevant to Health Maintenance Insurance CHOICE PLUS [facility] CHOICE PLUS CHOICE PLUS Care Teams Binder Cutter Relationship Specialty Start Date End Date Chapo Mays MD PCP - General Family Medicine 10/28/22
--- OUTSIDE RECORDS SUMMARY | 2024-10-05 09:25 | XMS_ITS | Clinical Summary ---
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 Referral to internal med for further [...] 7 Assessment & Plan (06/08/2020 3:18 PM MANAGER EMERGENCY): Ms. Kinney has chronic thoracic and lumbar [...] 05/07/20 11 Sacroiliitis, not elsewhere classified 1 Encounters Date Type Department Care Team Description 07/09/2024 8:45 AM MANAGER EMERGENCY Office Visit [facility] Orthopedic and Sports Medicine [address] [place] [address] Bandar Brooks MD Other tear of lateral meniscus of left knee as current injury, initial encounter (Primary Dx); Chronic pain of left knee; Complex tear of medial meniscus of left knee as current injury, initial encounter; Left leg weakness; It band syndrome, left 07/09/2024 8:40 AM MANAGER EMERGENCY Ancillary Procedure [facility] Imaging at [address] [phone] 07/09/2024 8:35 AM MANAGER EMERGENCY Ancillary Procedure [facility] Imaging at [address] [address] 07/09/2024 Orders Only [facility] Orthopedic and Sports Medicine [address] [place] [phone] Bandar Brooks MD It band syndrome, left (Primary Dx); Chronic pain of left knee; Complex tear of medial meniscus of left knee as current injury, initial encounter; Other tear of lateral meniscus of left knee as current injury, initial encounter; Left leg weakness; Lateral knee pain, left; Instability of left knee joint from Last 3 Months Surgical History Surgery Date Site/Laterality Comments CHOLECYSTECTOMY Cholecystectomy KNEE ARTHROSCOPY 06/30/1997 - 06/29/1998 Arthroscopy knee TONSILLECTOMY Tonsillectomy SLEEVE GASTROPLASTY Gastric sleeve TARSAL TUNNEL RELEASE 06/30/2008 - 06/29/2009 OVARIAN CYST REMOVAL 06/30/2016 - 06/29/2017 KNEE SURGERY Medical History Medical History Date Comments Hx Other Medical tarsal tunnel r elease rt ankle Hx Other Medical sleeve gastric surgery Asthma Asthma Anxiety disorder Anxiety Depression Depression Hx Other Medical Headache, migra ine Hx Other Medical ankylosing spon dylitis Hx Other Medical ovarian cyst Hx Other Medical bulging lumbar discs Hx Other Medical [place] Hx Other Medical Tonsillectomy 1 988.; Comments: YANETH 05/03/2015 - Hx Other Medical Lert knee arthr oscopy 1998.; Comments: YANETH 05/03/2015 - Hx Other Medical Cholecystectomy 2009.; Comments: YANETH 05/03/2015 - Hx Other Medical Tarsal tunnel r elease 2007.; Comments: YANETH 05/03/2015 - Hx Other Medical Weight loss lópez jaun 2012.; Comments: YANETH 05/03/2015 - Hx Other Medical Ovarian cysts r emoved 2013.; Comments: YANETH 05/03/2015 - Migraines Vertigo Arthritis Bronchitis Kidney stone Autoimmune disease Family History Medical History Relation Name Comments Headache Maternal Grandmother Headach es; Cancer Other 1 Family history of Cancer; Coronary artery disease Other 2 Fami ly history of Coronary artery disease; Diabetes Other 3 Family history of Diabetes mellitus; Hypertension Other 4 Family history of Hypertension; Other Other 5 Family history of joint pain; Osteoarthritis Other 6 Family histor y of Osteoarthritis; Stroke Other 7 Family history of Stroke; Other Other 8 Family history of Tuberculosis; Other Other 9 Family history of arthritis in back - great grand father; Other Other 10 Family history of osteoporosis - grandmother; Other Other 11 Family history of early heart attack (before the age of 60), diabetes, hypertension, cancer and arthritis.; Relation Name Status Comments Maternal Grandmother Other 1 Other 2 Other 3 Other 4 Other 5 Other 6 Other 7 Other 8 Other 9 Other 10 Other 11 Social History Tobacco Use Types Packs/Day Years [...] on file Legal Sex Female 1:34 AM MANAGER EMERGENCY Gender Identity Female 09/16/2020 8:53 AM CDT Sexual Orientation Straight 09/16/2020 8: 53 AM CDT Occupation Industry Job Start Date Job End Date Disabled Not on file Not on file Not on file Obstetrics History Last Filed Vital Signs Vital Sign Reading Time Taken Comments Blood Pressure 133/84 07/09/2024 8:42 AM MANAGER EMERGENCY Pulse 82 07/09/2024 8:42 AM MANAGER EMERGENCY Temperature 36.3 C (97.3 F) 11/16/2020 11:37 AM CDT Respiratory Rate 14 11/16/2020 1:29 PM CDT Oxygen Saturation 100% 01/09/2023 7:54 AM CDT Inhaled Oxygen Concentration - - Weight 93.2 kg (205 lb 6.4 oz) 07/09/2024 8:42 A M MANAGER EMERGENCY Height 165.1 cm (5' 5 ) 07/09/2024 8:42 AM MANAGER EMERGENCY Body Mass Index 34.18 07/09/2024 8:42 AM MANAGER EMERGENCY Plan of Treatment Health Maintenance Due Date Last Done Comments Breast Cancer Screening-Mammogram 1976 Cervical Cancer Screening 1976 Colon Cancer Screening-Colonoscopy 1976 Hepatitis B Screening 1994 Regular Well Visit/Exam 18-64 1994 Pneumococcal vaccine <65 (1 of 2 - PCV) 09/11/1995 Zoster Vaccine (1 of 2) 09/11/1995 Depression Screening 06/08/2021 06/08/2020, 06/08/20 20 Influenza Vaccine (Season Ended) 2025 04/08/2019, 03/23/2018, 04/21/2017, Additional history exists DTaP/Tdap/Td Vaccine (2 - Td or Tdap) 10/23/2032 10/23/2022 Hepatitis C Screening Completed 07/14/2015, 013 Medical Devices Implanted Type Area Donor Recruitment Manager Device Identifier Shelf Expiration Date Model / Serial / Lot Neurostimula tor- 1 Implanted: by Hiram Feliz MD (Quantity not on file) Neurostimulator N/A: Spine Thoracic [employer] 3660 / [id number] / Procedures Procedure Name Priority Date/Time Associated Diagnosis Comments XR KNEE LEFT 4 OR MORE VIEWS Schedule Routine, Read Routine (OP Routine) 07/09/2024 8:42 AM MANAGER EMERGENCY Chronic pain of left knee XR PELVIS 1 OR 2 VIEWS Schedule Routine, Read Routine (OP Routine) 07/09/2024 8:41 AM MANAGER EMERGENCY Chronic pain of left knee SERUM HEPATITIS C AB Routine 07/14/2015 11:34 AM MANAGER EMERGENCY from Last 3 Months or Most Recently Relevant to Health Maintenance Results * XR Knee Left 4 or More Views (07/09/2024 8:42 AM MANAGER EMERGENCY) Anatomical Region Laterality Modality Lower Extremities, Knee Left Digital Radiography Narrative 07/09/2024 9:26 AM MANAGER EMERGENCY Four views left knee shows mild degenerative changes medial and lateral compartments moderate patellofemoral joint arthrosis with mild tilt Bandar Brooks MD IMG XR PROCEDURES Final Resu lt * XR Pelvis 1 or 2 Views (07/09/2024 8:41 AM MANAGER EMERGENCY) Anatomical Region Laterality Modality Body, Pelvis N/A Digital Radiogra phy Narrative 07/09/2024 9:25 AM MANAGER EMERGENCY AP pelvis shows mild degenerative changes bilateral hips otherwise well-preserved joint spaces no fractures Bandar Brooks MD IMG XR PROCEDURES Final Resu lt * Serum Hepatitis C ab (07/14/2015 11:34 AM MANAGER EMERGENCY) HCV ab Negative Negative HISTORICAL RESULTS Serum 07/14/2015 11:3 4 AM MANAGER EMERGENCY Karen Newberry MD LAB BLOOD ORDERABLES Final Resul t HISTORICAL RESULTS from Last 3 Months or Most Recently Relevant to Health Maintenance Insurance [facility] CHOICE PLUS [facility] CHOICE PLUS Care Teams Semiconductor Packages Sealer Relationship Specialty Start Date End Date Chapo Mays MD PCP - General Family Medicine 10/28/22
--- OUTSIDE RECORDS SUMMARY | 2024-10-05 09:25 | XMS_ITS ---
Author Organization [facility] Address [address] [place] [address] Care Team Providers [place] Auditor Name Role Phone DavonChapo Primary Care Provider Karen Navarro Unavailable [phone] Karen Navarro MD Unavailable Unavailable Allergies Allergen (clinical drug ingredient) Drug/Non Drug Allergy documented on EMR Reaction Allergy Type Onset Date Status Substance with penicillin structure and antibacterial mechanism of action (substance) Penicillins Unknown Drug Allergy 10/04/2017 Active Strawberries Unknown Allergy 10/15/2017 Active REASON FOR VISIT Infusion Simponi 4 vials YD Medications Medication SIG (Take, Route, Frequency, Duration) Notes Start Date End Date Status predniSONE 5 MG take 3 tablets by oral route daily for 7 days, then 2 tablets QD for 7 days, then 1 tablet QD for 7 days Oral 1 02/11/2023 Not-Taking Cyanocobalamin 1000 MCG/ML INJECT 1 MILLILITER (1,000 MCG) BY INTRAMUSCULAR ROUTE ONCE A WEEK FOR 1 MONTH for 84 Active DULoxetine HCl 60 MG TAKE 1 CAPSULE BY MOUTH EVERY DAY for 90 Active Multivitamin Adult take 1 capsule by oral route once Oral 1 Active Methotrexate Sodium 2.5 MG TAKE 6 TABLETS BY MOUTH ONCE WEEKLY for 90 Active Erythromycin 5 MG/GM apply 1 cm ribbon into the lower conjunctival sac in the left eye by ophthalmic route once daily Ophthalmic 1 01/21/2023 Not-Taking SYRINGE WITH NEEDLE DISP 1 mL 25 gauge x 1 use as directed MISCELLANEOUS *Reorder from [employer] for eRx and Interaction Alerts* 10/28/2022 Not-Taking BD Disp Needle 25G X 1 as directed for weekly B12 injections for 30 days 11/06/2023 Not-Taking Levothyroxine Sodium 112 MCG 1 tablet in the morning on an empty stomach Orally Once a day for 90 days Active Syringe 2-3 ML 3 ML Use one syringe to inject B-12 once a month for 90 days 11/12/2023 Active Gabapentin 600 MG TAKE 1 TABLET BY MOUTH THREE TIMES A DAY for 90 Active Folic Acid 1 MG 1 Oral daily for 90 days Active Simponi Aria 50 MG/4ML as directed Intravenous Active Vital Signs Temperature 97.9 degrees Fahrenheit 08/04/19 25 Blood pressure systolic 124 mm Hg 08/04/19 25 Blood pressure diastolic 76 mm Hg 025 Heart Rate 68 /min 08/04/2024 Height 65 in 08/04/2024 Weight 204 lbs 08/04/2024 BMI 33.94 kg/m2 08/04/2024 Height-cm 165.10 cm 08/04/2024 Weight-kg 92.53 kg 08/04/2024 Encounters Encounter Location Date Provider Diagnosis [facility] [address] [place] [address] 08/04/2024 Karen Navarro Ankylosing spondylit is of unspecified sites in spine M45.9 Assessments Encounter Date Diagnosis (ICD Code) Assessment Notes Treatment Notes Treatment Clinical Notes Section Notes 08/04/2024 Ankylosing spondylitis of unspecified sites in spine (ICD-10 - M45.9) Plan Of Treatment Pending Test Test Name Order Date CBC w auto diff 08/04/2024 Comprehensive metabolic panel (CMP) 10/2024 Next Appt Details Follow Up: 2 Months, Reason: Provider Name:Karen Navarro, 11/24 10:30:00 AM, [address], [place], [address], Provider Name:Chapo Mays , 01/14/2025 10:00:00 AM, [address], [place], [address], Provider Name:Karen Navarro, 01/19 10:30:00 AM, [address], [place], [address], Progress Notes * Debra KINNEY:1975 ( 48 yo F)Acc No.[id number]:08/04/2024 Simponi Infusion Patient: Stefany NIELSON Provider: Amanda NAVARRO MD :1975 A ge:48 Y S ex:Female Date:08/04/2024 [address] [facility] Pcp:Chapo Mays Subjective: * Chief Complaints: * I nfusion Simponi 4 vials YD * HPI: I nfusion: Infusion Record T ype of Infusion _ ____,Simponi Aria,?What is the dosage . 185mg dose. 15mg waste., H ow is the dose calculated . 2mg/kg, A uthorized by _ ____,Dr. Navarro, Jason umber of vials to reconstitute . 4, I nfusion type _ ____,Simponi Aria, A mount . 185mg, M anufacturer _ ___ Monica, E xpiration date 12/2026, L ot number _ __ [id number], S terile water (number of vials) . [...] revious Infusion D ate of last infusion 1 08/10/2023, P revious infusion type? ,Simponi Aria, R eaction N o, W as patient pre treated _ ____,N/A, R esponse to previous infusion _ ____ Agrees with plan of care. I V INSERTION C atheter brand _ ___ Uot-U-Jckbah, C atherter Gauge _ ____,24 ga, N eedle Length _ ___,3/4 inch, I V site accessed _ ___ RH, N umber of attempts to access vein/port . 1, P remedication _ ____ n/a, T gilles given _ __ n/a. P ATIENT MONITORING T gilles infusion initated _ __ 1035, R ate of infusion _ __ 200cc/hour, I nfusion end time: _ ____ 1105. D ISPOSITION T gilles IV discontinued: _ __ 1107, A mount of drug administered _ ___ 185mg, N ext Infusion Date Scheduled: 0 09/29/2024. * Medical History: * Surgical History: G astric bypass, laparoscopic; [id number]: left knee scope; cleaned up cartilage, Date of Procedure: 1997; 6170-59-75Cwqgwutkynnme, Date of Procedure: 1986; 6091-94-77Nvsq Bladder Surgery, Date of Procedure: 2011; 5517-99-54Fcubwjh cyst removal: right side, Date of Procedure: 2014; 8028-82-75Saeicq tunnel release, right foot, Date of Procedure: 2010; 1871-91-43riickqo sleeve; 1166-30-08Qqqxbmgqd Nerve Decompression/Release: Done for occipital neuralgia; 7553-03-24azgoln cord stimulator implant; 2022-10-23 * Hospitalization/Major Diagno stic Procedure: * Family History: F ather: Diabetes , Heart Disease Notes: [place] at age 51y , Hypertension . M [...] MISCELLANEOUS , Notes to Pharmacist: *Reorder from [employer] for eRx and Interaction Alerts*Erythromycin 5 MG/GM [...] MISCELLANEOUS , Notes to Pharmacist: *Reorder from [employer] for eRx and Interaction Alerts*Not- Taking Erythromycin [...] Onset Date 10/04/2017 Objective: * Vitals: B P:124/76mm Hg, HR:68/min, Temp:97.9F, Wt:204lbs, Wt-k.53 kg, Ht: 65 in, Ht- cm: 165.10 cm, BMI:33.94Index, Body Surface Area: 2.06. Assessment: * Assessment: 1. A nkylosing spondylitis of unspecified sites in spine - M45.9 (Primary) S pecify :Src Problem: Ankylosing spondylitis Plan: * Treatment: * Procedure Codes: J 1602 INJECTION GOLIMUMAB 1 MG FOR IV USE, Units: 185.00 43620 THER/PROPH/DIAG IV INF, [id number] INJECTION GOLIMUMAB 1 MG FOR IV USE, Units: 15.00 , Modifiers: JW * Follow Up: 2 Months * Billing Information: * Visit Code: * Procedure Codes: J1602 INJECTION GOLIMUMAB 1 MG FOR IV USE. Units: 185.00. 44305 THER/PROPH/DIAG IV INF, INIT. J1602 INJECTION GOLIMUMAB 1 MG FOR IV USE. Units: 15.00. Modifiers: JW * NISTRATIVE SUPPORT MANAGER Electronically co-signed by Karen Navarro MD on 08/04/2024 at 05:35 PM ADMINISTRATIVE SUPPORT MANAGER Sign off status: Completed true * Provider: Amanda NAVARRO MD Date: 0 08/04/2024 Generated for Teja bloom/Roman/eTransmitting on: 0 10/05/2024 09:24 AM CDT History and Physical Notes * HPI (History of Present Illness) Category Sub-Category Detail Notes Category Not es Infusion Infusion Record Type of Infusion: ,Simponi Aria What is the dosage: . 185mg dose. 15mg w aste. How is the dose calculated: . 2mg/kg Authorized by: Dr. Navarro Number of vials to reconstitute: . 4 Infusion type: ,Simponi Aria Amount: . 185mg Archival Studies Professor: ____ Monica Expiration date: 12/2026 Lot number: ___ [id number] Sterile water (number of vials): . n/a Sterile water lot number: N/A sterile water MFG: N/A Pre Infusion Assessment TB Screening Results PPD : N/A Quantiferon TB Gold Results: Negative on 09/02/2023 Chest Xray Results: N/A Recent exposure to TB: ,N/A Any illness now: ,None Skin Conditon Does the patient has any skin co ndition: no Previous Infusion Date of last infusion: 024 Previous infusion type: ,Simponi Ar ia Reaction: No Was patient pre treated: ,N/A Response to previous infusion: Agr ees with plan of care IV INSERTION Catheter brand: ____ Saf-T-Intim a Catherter Gauge: ,24 ga Needle Length: ____,3/4 inch IV site accessed: ____ Number of attempts to access vein/port: . 1 Premedication: n/a Time given: ___ n/a PATIENT MONITORING Time infusion initated: ___ 1 035 Rate of infusion: ___ 200cc/hour Infusion end time:: 1105 DISPOSITION Time IV discontinued:: ___ 1107 Amount of drug administered: ____ 185mg Next Infusion Date Scheduled::
--- OUTSIDE RECORDS SUMMARY | 2024-10-05 09:29 | XMS_ITS | Patient Health Record ---
Author Organization [facility] Address [address] [place] [address] Care Team Providers Care Scrap Stripper Hand Name Role Phone DavonChapo Primary Care Provider [phone] Karen Newberry Unavailable [phone] Karen Newberry MD Unavailable Unavailable Allergies Allergen (clinical drug ingredient) Drug/Non Drug Allergy documented on EMR Reaction Allergy Type Onset Date Status Substance with penicillin structure and antibacterial mechanism of action (substance) Penicillins Unknown Drug Allergy 10/04/2017 Active Strawberries Unknown Allergy 10/15/2017 Active Results Component Value Reference Range Notes CBC (INCLUDES DIFF/PLT) (639 9) Reviewed date:12/24/2023 03:25:12 PM Interpretation: Performing Lab:[facility], [facility]-[id number] Jacky [id number] José Miguel Huerta MD Notes/Report: FASTING: UNKNOWN WHITE BLOOD CELL COUNT 9.0 3.8-10.8 Thousand/ uL RED BLOOD CELL COUNT 5.05 3.80-5.10 Million/uL HEMOGLOBIN 15.3 11.7-15.5 g/dL HEMATOCRIT 47.4 35.0-45.0 % MCV 93.9 80.0-100.0 fL MCH 30.3 27.0-33.0 pg MCHC 32.3 32.0-36.0 g/dL RDW 13.6 11.0-15.0 % PLATELET COUNT 338 140-400 Thousand/uL MPV 12.4 7.5-12.5 fL ABSOLUTE NEUTROPHILS [phone] cells/uL ABSOLUTE LYMPHOCYTES 2880 850-3900 cells/uL ABSOLUTE MONOCYTES 720 200-950 cells/uL ABSOLUTE EOSINOPHILS 216 15-500 cells/uL ABSOLUTE BASOPHILS 108 0-200 cells/uL NEUTROPHILS 56.4 LYMPHOCYTES 32.0 MONOCYTES 8.0 EOSINOPHILS 2.4 BASOPHILS 1.2 COMPREHENSIVE METABOLIC PANE L (20193) Reviewed date:12/24/2023 03:25:12 PM Interpretation: Performing Lab:[facility]-[id number] Bebeto Hinds, [id number] José Miguel Huerta MD Notes/Report: FASTING: UNKNOWN GLUCOSE 75 65-99 mg/dL Fasting reference interval UREA NITROGEN (BUN) 14 7-25 mg/dL CREATININE 0.91 0.50-0.99 mg/dL EGFR 78 > OR = 60 mL/min/1.73m2 BUN/CREATININE RATIO SEE NOTE: 6-22 (calc) Not Reported: BUN and Creatinine are within reference range. SODIUM 142 135-146 mmol/L POTASSIUM 4.2 3.5-5.3 mmol/L CHLORIDE 106 98-110 mmol/L CARBON DIOXIDE 26 20-32 mmol/L CALCIUM 9.6 8.6-10.2 mg/dL PROTEIN, TOTAL 6.6 6.1-8.1 g/dL ALBUMIN 4.3 3.6-5.1 g/dL GLOBULIN 2.3 1.9-3.7 g/dL (calc) ALBUMIN/GLOBULIN RATIO 1.9 1.0-2.5 (calc) BILIRUBIN, TOTAL 0.7 0.2-1.2 mg/dL ALKALINE PHOSPHATASE 71 31-125 U/L AST 15 10-35 U/L ALT 12 6-29 U/L CLIENT EDUCATION TRACKING Reviewed date:12/30/2023 11:07:22 AM Interpretation: Performing Lab:[facility]-[id number] Bebeto Hinds, [id number] José Miguel Huerta MD Notes/Report: FASTING: NO CLIENT EDUCATION TRACKING The Requisition we received did not include a [employer] account number. To prevent delays in testing and processing of your orders please provide the following information with every order submitted: [facility] account number and account name Client address Client phone and fax number NPI number of ordering physician along with the physician name. THYROID PEROXIDASE ANTIBODIE S ([id number]) Reviewed date:12/30/2023 11:07:22 AM Interpretation: Performing Lab:[facility]OR[facility]-Adriel [id number] Mitte[place]riel [id number] Terrell Joshua Velez Notes/Report: FASTING: NO THYROID PEROXIDASE ANTIBODIES <1 <9 IU/mL NO COLLECTION DATE RECEIVED. WE HAVE USED THE DATE THE SPECIMEN WAS RECEIVED BY THIS LABORATORY THE COLLECTION DATE. IF THIS IS INCORRECT, PLEASE CONTACT CLIENT SERVICES. PHONE NUMBER: [phone] eGFR Reviewed date:04/14/2024 09:34:13 PM Interpretation: Performing Lab:[facility] , [address] [place] [address]. [facility] [address] Notes/Report: eGFR >90 >=60 mL/min/1.73 m2 Interpretive Data Reference Interval Normal >/= 90 mL/min/1.73m2 Mildly decreased* 60 - 89 mL/min/1.73m2 Mildly to moderately decreased 45 - 59 mL/min/1.73m2 Moderately to severely decreased 30 - 44 mL/min/1.73m2 Severely decreased 15 - 29 mL/min/1.73m2 Kidney Failure < 15 mL/min/1.73m2 *Relative to young adult level Estimated glomerular filtration rate is determined by the 2020 CKD-EPI equation recommended by the National Kidney Foundation (A Unifying Approach to GFR Estimation: Recommendations of the NKF-ASK Task Force on Reassessing the Inclusion of Race in Diagnosing Kidney Disease, JASN 2020). The CKD-EPI equation should not be used for patients with unstable renal function and has not been validated in children and those over 70. Current interpretive data was last reviewed 2021. Differential Automated Reviewed date:04/14/2024 09:34:12 PM Interpretation: Performing Lab:[facility] , [address] [place] [address]. [facility] [address] Notes/Report: Neut Abs 4.9 1.5-6.5 K/cumm ImmGran Abs 0.0 0.0-0.1 K/cumm Lymphocyte Abs 2.5 0.8-3.3 K/cumm Acadia Abs 0.5 0.2-0.8 K/cumm Eos Abs 0.2 0.0-0.5 K/cumm Baso Abs 0.1 0.0-0.1 K/cumm Neut Pct 59.1 Interpretive Data Percent cell count reference ranges are not reported, since discordance with absolute values may lead to misinterpretation of CBC data. Current Interpretive Data was last revised on 2017. ImmGran Pct 0.4 Interpretive Data Percent cell count reference ranges are not reported, since discordance with absolute values may lead to misinterpretation of CBC data. Current Interpretive Data was last revised on 2017. Lymph Pct 30.5 Interpretive Data Percent cell count reference ranges are not reported, since discordance with absolute values may lead to misinterpretation of CBC data. Current Interpretive Data was last revised on 2017. Acadia Pct 6.5 Interpretive Data Percent cell count reference ranges are not reported, since discordance with absolute values may lead to misinterpretation of CBC data. Current Interpretive Data was last revised on 2017. Eos Pct 2.7 Interpretive Data Percent cell count reference ranges are not reported, since discordance with absolute values may lead to misinterpretation of CBC data. Current Interpretive Data was last revised on 2017. Baso Pct 0.8 Interpretive Data Percent cell count reference ranges are not reported, since discordance with absolute values may lead to misinterpretation of CBC data. Current Interpretive Data was last revised on 2017. T4 Free Reviewed date:01/20/2024 06:58:57 PM Interpretation: Performing Lab:[facility] , [address] [place] [address]. [facility] [address] Notes/Report: This test was reflexed from a TSH result. Free T4 (Free Thyroxine) 1.22 0.90-1.70 ng/dL T3 Free Reviewed date:01/20/2024 06:58:57 PM Interpretation: Performing Lab:[facility] , [address] [place] [address]. [facility] [address] Notes/Report: This test was reflexed from a Free T4 result. Free T3 2.7 2.0-4.4 pg/mL Comprehensive metabolic pane l (CMP) Reviewed date:04/14/2024 09:34:12 PM Interpretation: Performing Lab:[facility] , [address] [place] [address]. [facility] [address] Notes/Report: Sodium 143 135-145 mmol/L Plasma Potassium 3.8 3.3-4.9 mmol/L Chloride 105 97-110 mmol/L Total CO2 25 22-32 mmol/L Anion Gap 13 2-15 mmol/L BUN 9 6-25 mg/dL Creatinine 0.76 0.60-1.10 mg/dL Glucose 88 70-199 mg/dL Interpretive Data Fasting glucose >/= 126 mg/dl is diagnostic for diabetes. Fasting is defined as no caloric intake for at least 8 hours. Fasting glucose between 100 mg/dl to 125 mg/dl is diagnostic of prediabetes. In a patient with classic symptoms of hyperglycemia or hyperglycemic crisis, a random glucose >/= 200 mg/dl is diagnostic for diabetes. In the absence of unequivocal hyperglycemia, results should be confirmed by repeat testing. The classification and Diagnosis of Diabetes Diabetes Care 2021; 46: S19-S40. Current interpretive data was last revised 2022. Total Calcium 9.1 8.5-10.3 mg/dL Total Bilirubin 0.5 0.1-1.2 mg/dL Plasma Total Protein 6.8 6.5-8.5 g/dL Albumin 4.0 3.5-5.0 g/dL Alkaline Phosphatase 79 40-130 Units/L ALT 18 7-45 Units/L AST 19 10-45 Units/L CBC w auto diff Reviewed date:04/14/2024 09:34:12 PM Interpretation: Performing Lab:[facility] , [facility] [facility]. [facility] [address] Notes/Report: WBC 8.3 3.8-9.9 K/cumm Hgb 15.0 11.9-15.5 g/dL Hct 48.5 35.6-45.5 % Platelet Ct 330 150-400 K/cumm MPV 11.9 9.1-12.3 fL RBC 5.03 3.90-5.20 M/cumm MCV 96.4 81.3-96.4 fL MCH 29.8 27.1-33.3 pg MCHC 30.9 32.3-35.7 g/dL RDW CV 15.2 11.1-14.9 % RDW SD 54.3 35.7-48.1 fL NRBC Abs Auto 0.00 0.00-0.01 K/cumm TSH Reflex FT4 Reviewed date:01/19/2024 03:45:04 PM Interpretation: Performing Lab:[facility] , [address] [facility]. [facility] [address] Notes/Report: TSH ([place]) 0.11 0.30-4.20 mcIUnit/mL Lipid Panel Reviewed date:01/19/2024 03:45:03 PM Interpretation: Performing Lab:[facility] , [address] [place] [address]. [facility] [address] Notes/Report: Cholesterol 171 30-199 mg/dL Interpretive Data Ages < or = 19 years Acceptable: <170 mg/dL Borderline high: 170-199 mg/dL High: >or= 200 mg/dL Ages > or = 20 years Desirable: <200 mg/dL Borderline high: 200-239 mg/dL High: >or= 240 mg/dL Literature References: 1. Expert Panel on Integrated Guidelines for Cardiovascular Health and Risk Reduction in Children and Adolescents. Pediatrics 2011;128:S213 2. NCEP Expert Panel. Circulation 2004;110:227 Current Interpretive Data was last revised on 2018. Triglycerides 46 <=149 mg/dL Interpretive Data Ages < or = 9 years Acceptable: <75 mg/dL Borderline high: 75-99 mg/dL High: >or= 100 mg/dL Ages 10 to 20 years Acceptable: <90 mg/dL Borderline high: 90-129 mg/dL High: >or= 130 mg/dL Ages > or = 20 years Desirable: <150 mg/dL Borderline high: 150-199 mg/dL High: 200-499 mg/dL Very high: >or= 499 mg/dL Literature References: 1. Expert Panel on Integrated Guidelines for Cardiovascular Health and Risk Reduction in Children and Adolescents. Pediatrics 2011;128:S213 2. NCEP Expert Panel. Circulation 2004;110:227 Current Interpretive Data was last revised on 2018. HDL Cholesterol 72 >=40 mg/dL Interpretive Data Ages < or = 19 years Acceptable: >45 mg/dL Borderline low: 40-45 mg/dL Low: <40 mg/dL Ages > or = 20 years Desirable: >or= 60 mg/dL Low: <40 mg/dL Literature References: 1. Expert Panel on Integrated Guidelines for Cardiovascular Health and Risk Reduction in Children and Adolescents. Pediatrics 2011;128:S213 2. NCEP Expert Panel. Circulation 2004;110:227 Current Interpretive Data was last revised on 2018. LDL Cholesterol, calculated 90 <=129 mg/dL Interpretive Data Ages < or = 19 years Acceptable: <110 mg/dL Borderline high: 110-129 mg/dL High: >or= 130 mg/dL Ages > or = 20 years Optimal: <100 mg/dL Near optimal: 100-129 mg/dL Borderline high: 130-159 mg/dL High: >160 mg/dL Literature References: 1. Expert Panel on Integrated Guidelines for Cardiovascular Health and Risk Reduction in Children and Adolescents. Pediatrics 2011;128:S213 2. NCEP Expert Panel. Circulation 2004;110:227 Current Interpretive Data was last revised on 2018. Non-HDL Cholesterol 99 Interpretive Data Ages < or = 19 years Acceptable: <120 mg/dL Borderline high: 120-144 mg/dL High: >145 mg/dL Ages > or = 20 years When triglycerides are >200 mg/dL, Non-HDL cholesterol is a secondary target of therapy with treatment goals that are 30 mg/dL greater than the LDL cholesterol target. Literature References: 1. Expert Panel on Integrated Guidelines for Cardiovascular Health and Risk Reduction in Children and Adolescents. Pediatrics 2011;128:S213 2. NCEP Expert Panel. Circulation 2004;110:227 Current Interpretive Data was last revised on 2018. Cholesterol/HDL ratio 2 Hemoglobin A1C Reviewed date:01/19/2024 03:45:02 PM Interpretation: Performing Lab:[facility] , [address] [facility]. [facility] [address] Notes/Report: Hemoglobin A1C 5.1 4.0-5.6 % Est Average Glucose 100 The ADA recommends reporting an estimated Average Glucose (eAG) with all Hemoglobin A1c results using the equation derived from a study of 507 normal and diabetic adults. Minority populations were underrepresented and children were not included. (Diabetes Care 31:2914-5506, 2008). The eAG is not equivalent to a fasting glucose. Reason For Referral Reason [facility] Sipmoni Stewarta Diagnosis 1 Ankylosing spondylit is, unspecified site of spine (M45.9) Referral Organization [facility] rodríguez Referring Provider First Name Karen Referring Provider Last Name Rohith Referring Provider Speciality Rheumatolo gy Referred Organization [facility] rodríguez Referred Provider Karen Newberry Referred Address [address],[place], [place],[address], Referred Provider Specialty Rheumatology Procedure 1 INJECTION GOLIMUMAB 1 MG FOR IV USE (J1602) Referral Priority Routine Medications Medication SIG (Take, Route, Frequency, Duration) Notes Start Date End Date Status Syringe 2-3 ML 3 ML Use one [...] Once a day for 90 days Active Cyanocobalamin 1000 MCG/ML INJECT 1 MILLILITER (1,000 MCG) BY INTRAMUSCULAR ROUTE ONCE A WEEK FOR 1 MONTH for 84 Active Multivitamin Adult take 1 capsule by oral route once Oral 1 Active Folic Acid 1 MG 1 Oral daily for 90 days Active Simponi Aria 50 MG/4ML as directed Intravenous Active DULoxetine HCl 60 MG TAKE 1 CAPSULE BY MOUTH EVERY DAY Orally Once a day for 90 days Active Erythromycin 5 MG/GM apply 1 cm ribbon into the lower conjunctival sac in the left eye by ophthalmic route once daily Ophthalmic 1 01/21/2023 Not-Taking SYRINGE WITH NEEDLE DISP 1 mL 25 gauge x 1 use as directed MISCELLANEOUS *Reorder from [employer] for eRx and Interaction Alerts* 10/28/2022 Not-Taking Methotrexate Sodium 2.5 MG TAKE 6 TABLETS BY MOUTH ONCE WEEKLY for 90 Active predniSONE 5 MG take 3 tablets by oral route daily for 7 days, then 2 tablets QD for 7 days, then 1 tablet QD for 7 days Oral 1 02/11/2023 Not-Taking Immunizations Vaccine Route Administration Date Status Comme nts Tdap IM Intramuscular 10/23/2022 Administered Social History Tobacco Use: Social History Observation Description Date Details (start date - stop date) Never Smoker NA - NA Tobacco Control (Standard) Question Answer Notes Tobacco use: Nonsmoker Problems Problem Type SNOMED Code ICD Code Onset Dates Problem Status W/U Status Risk Notes Problem 10292664 Other chronic pain (G89.29) Active confirmed Problem Rheumatoid arthritis (63478039) Rheumatoid arthritis without rheumatoid factor, unspecified site (M06.00) Active confirmed Problem 2143619 Ankylosing spondylitis of multiple sites in spine (M45.0) Active confirmed Problem Psoriasis (6778661) Psoriasis (L40.9) Active confirmed Problem Hypothyroidism (55881434) Hypothyroidism (acquired) (E03.9) Active confirmed Problem Cerebral cysts (66953563) Cerebral cysts (G93.0) 10/24/19 Active confirmed Problem Eye Disorder (676176126) Unspecified disorder of eye and adnexa (H57.9) 10/24/19 Active confirmed Problem Ankylosing spondylitis (6993989) Ankylosing spondylitis of unspecified sites in spine (M45.9) 10/24/19 Active confirmed Problem Lung field abnormal (426648902) Other nonspecific abnormal finding of lung field (R91.8) 10/24/19 Active confirmed Problem Adult health examination (036521123) Encounter for general adult medical examination without abnormal findings (Z00.00) 10/24/19 Active confirmed Problem Vaccination given (884065837) Encounter for immunization (Z23) 10/24/19 Active confirmed Problem History of bariatric surgical procedure (854794352) Bariatric surgery status (Z98.84) 10/24/19 Active confirmed Vital Signs Heart Rate 71 /min 09/29/2024 Temperature 98.2 degrees Fahrenheit 09/29/2024 Height-cm 165.10 cm 09/29/2024 Blood pressure diastolic 77 mm Hg 09/29/2024 Oximetry 100 % 01/14/2024 Weight-kg 94.8 kg 09/29/2024 Height 65 in 09/29/2024 Blood pressure systolic 122 mm Hg 09/29/2024 Weight 209 lbs 09/29/2024 BMI 34.78 kg/m2 09/29/2024 Encounters Encounter Location Date Provider Diagnosis [facility] [address] [place] [address] 10/22/2023 Chapo Davon RUQ abdominal pain R10.11 [facility] [address] [place] [address] 10/28/2023 Karen Du Ankylosing spondylit is of unspecified sites in spine M45.9 and Rheumatoid arthritis without rheumatoid factor, unspecified site M06.00 [facility] [address] [place] [address] 10/28/2023 Karen Du Ankylosing spondylit is of multiple sites in spine M45.0 ; Lumbar back pain M54.50 ; Psoriasis L40.9 and High risk medication use Z79.899 [facility] [address] [place] [address] 11/12/2023 Chapo Davon RUQ abdominal pain R10.11 ; Right lower quadrant pain R10.31 ; Night sweats R61 and Bariatric surgery status Z98.84 [facility] [address] [place] [address] 12/03/2023 Chapo Davon Hypothyroidism (acquired) E03.9 [facility] [address] [place] [address] 12/23/2023 Karen Du Ankylosing spondylit is of unspecified sites in spine M45.9 [facility] [address] [place] [address] 01/14/2024 Chapo Davon Annual physical exam Z00.00 ; Breast cancer screening by mammogram Z12.31 ; Cervical cancer screening Z12.4 ; Colon cancer screening Z12.11 ; Screening for diabetes mellitus Z13.1 ; Hypothyroidism (acquired) E03.9 and Lipid screening Z13.220 [facility] [address] [place] [address] 02/18/2024 Karen Du Ankylosing spondylit is of unspecified sites in spine M45.9 [facility] [address] [place] [address] 04/14/2024 Karen Du Ankylosing spondylit is of unspecified sites in spine M45.9 [facility] [address] [place] [address] 04/14/2024 Karen Du Ankylosing spondylit is of unspecified sites in spine M45.9 ; Ankylosing spondylitis of multiple sites in spine M45.0 ; Lumbar back pain M54.50 ; Psoriasis L40.9 ; High risk medication use Z79.899 and Pain, joint, knee, left M25.562 [facility] [address] [place] [address] 06/09/2024 Karen Du Ankylosing spondylit is of unspecified sites in spine M45.9 [facility] [address] [place] [address] 08/04/2024 Karen Newberry Ankylosing spondylit is of unspecified sites in spine M45.9 [facility] [address] [place] [address] 08/04/2024 Karen Newberry Ankylosing spondylit is of unspecified sites in spine M45.9 ; Ankylosing spondylitis of multiple sites in spine M45.0 ; Lumbar back pain M54.50 ; Psoriasis L40.9 ; High risk medication use Z79.899 and Neck stiffness M43.6 [facility] [address] [place] [address] 09/29/2024 Karen Newberry Ankylosing spondylit is M45.9 [facility] [address] [place] [address] 10/27/2023 Chapo Davon Unspecified abdomina l pain R10.9 and Other chronic pain G89.29 [facility] [address] [place] [address] 11/06/2023 [facility] [address] [place] [address] 11/12/2023 [facility] [address] [place] [address] 11/18/2023 [facility] [address] [place] [address] 11/20/2023 [facility] [address] [place] [address] 02/09/2024 [facility] [address] [place] [address] 02/17/2024 [facility] [address] [place] [address] 02/18/2024 [facility] [address] [place] [address] 04/13/2024 [facility] [address] [place] [address] 04/17/2024 Karen Newberry [facility] [address] [place] [address] 12/30/2023 Chapo Mays [facility] [address] [place] [address] 01/19/2024 Chapo Mays Assessments Encounter Date Diagnosis (ICD Code) Assessment Notes Treatment Notes Treatment Clinical Notes Section Notes 10/22/2023 RUQ abdominal pain (ICD-10 - R10.11) - uncontrolled; worsening over the last few months - hx of cholecystecto my - no stool changes, no vomiting - etiology unclear at this time; will eval with cmp and lipase 10/27/2023 Other chronic pain (ICD-10 - G89.29) 10/27/2023 Unspecified abdominal pain (ICD-10 - R10.9) 10/28/2023 Ankylosing spondylitis of unspecified sites in spine (ICD-10 - M45.9) 10/28/2023 Ankylosing spondylitis of multiple sites in spine (ICD-10 - M45.0) simponi aria and methtorexate have helped a lot, will continue both, labs today 11/12/2023 Right lower quadrant pain (ICD-10 - R10.31) 11/12/2023 RUQ abdominal pain (ICD-10 - R10.11) - chronic, uncontrolled - off and on for years, but over the last 3 months it has been constant and worse than usual. No associated changes in bowel movements, pain is not effected by food. Does endorse some early satiety. - CT abd w/ contrast showed possible mild mesenteric adenitis, though I wouldn't expect this to cause her pain for this long. No s/s to suggest that this could be pain due to hip pathology at this time. - etiology unclear at this time; will refer to Dr. James Gann with GI for further eval 12/03/2023 Hypothyroidism (acquired) (ICD-10 - E03.9) - symptomatic - start synthroid; repeat TSH and T4 after 6 weeks of tx 12/23/2023 Ankylosing spondylitis of unspecified sites in spine (ICD-10 - M45.9) 01/14/2024 Annual physical exam (ICD-10 - Z00.00) - no abnormal findings on exam 02/18/2024 Ankylosing spondylitis of unspecified sites in spine (ICD-10 - M45.9) 04/14/2024 Ankylosing spondylitis of unspecified sites in spine (ICD-10 - M45.9) 04/14/2024 Ankylosing spondylitis of multiple sites in spine (ICD-10 - M45.0) simponi aria and methtorexate have helped a lot, will continue both, order Xray of the left knee 04/14/2024 Ankylosing spondylitis of unspecified sites in spine (ICD-10 - M45.9) simponi aria and methtorexate have helped a lot, will continue both, order Xray of the left knee 01/14/2024 Breast cancer screening by mammogram (ICD-10 - Z12.31) - scheduled for mammogram in 06/09/2024 Ankylosing spondylitis of unspecified sites in spine (ICD-10 - M45.9) 08/04/2024 Ankylosing spondylitis of unspecified sites in spine (ICD-10 - M45.9) 08/04/2024 Ankylosing spondylitis of multiple sites in spine (ICD-10 - M45.0) simponi aria and methtorexate have helped a lot, will continue both, start neck exercise, instructions given 08/04/2024 Ankylosing spondylitis of unspecified sites in spine (ICD-10 - M45.9) simponi aria and methtorexate have helped a lot, will continue both, start neck exercise, instructions given 09/29/2024 Ankylosing spondylitis (ICD-10 - M45.9) 01/14/2024 Cervical cancer screening (ICD-10 - Z12.4) - sees Gyne 08/04/2024 Lumbar back pain (ICD-10 - M54.50) simponi aria and methtorexate have helped a lot, will continue both, start neck exercise, instructions given 04/14/2024 Lumbar back pain (ICD-10 - M54.50) simponi aria and methtorexate have helped a lot, will continue both, order Xray of the left knee 11/12/2023 Night sweats (ICD-10 - R61) - about once/week since 04/2023; no weight loss - had CBC checked recently and it was normal. CMP obtained a month ago was also normal 10/28/2023 Lumbar back pain (ICD-10 - M54.50) simponi aria and methtorexate have helped a lot, will continue both, labs today 10/28/2023 Rheumatoid arthritis without rheumatoid factor, unspecified site (ICD-10 - M06.00) 10/28/2023 Psoriasis (ICD-10 - L40.9) simponi aria and methtorexate have helped a lot, will continue both, labs today 11/12/2023 Bariatric surgery status (ICD-10 - Z98.84) 01/14/2024 Colon cancer screening (ICD-10 - Z12.11) - up-to-date. Next due 03/203304/14/2024 Psoriasis (ICD-10 - L40.9) simponi aria and methtorexate have helped a lot, will continue both, order Xray of the left knee 08/04/2024 Psoriasis (ICD-10 - L40.9) simponi aria and methtorexate have helped a lot, will continue both, start neck exercise, instructions given 08/04/2024 High risk medication use (ICD-10 - Z79.899) simponi aria and methtorexate have helped a lot, will continue both, start neck exercise, instructions given 04/14/2024 High risk medication use (ICD-10 - Z79.899) simponi aria and methtorexate have helped a lot, will continue both, order Xray of the left knee 01/14/2024 Screening for diabetes mellitus (ICD-10 - Z13.1) 10/28/2023 High risk medication use (ICD-10 - Z79.899) simponi aria and methtorexate have helped a lot, will continue both, labs today 04/14/2024 Pain, joint, knee, left (ICD-10 - M25.562) simponi aria and methtorexate have helped a lot, will continue both, order Xray of the left knee 01/14/2024 Hypothyroidism (acquired) (ICD-10 - E03.9) 08/04/2024 Neck stiffness (ICD-10 - M43.6) simponi aria and methtorexate have helped a lot, will continue both, start neck exercise, instructions given 01/14/2024 Lipid screening (ICD-10 - Z13.220) 01/14/2024 Other *bariatric labs already checked recently and were normal Plan Of Treatment Pending Test Test Name Order Date X ray : Knee, left 04/14/2024 Vitamin B12 and Folate 11/12/2023 Lipase, Serum 10/22/2023 Vitamin B6 11/12/2023 CBC With Differential/Platelet 4 CBC With Differential/Platelet 4 CBC With Differential/Platelet 3 CBC With Differential/Platelet 4 Thyroid Peroxidase (TPO) Ab 12/03/2023 T4 and TSH 11/12/2023 CMP - Comp. Metabolic Panel (14) 024 CMP - Comp. Metabolic Panel (14) 024 CMP - Comp. Metabolic Panel (14) 024 CMP - Comp. Metabolic Panel (14) 023 CMP - Comp. Metabolic Panel (14) 024 CT ABDOMEN W CONTRAST 10/27/2023 Quantiferon Gold 09/02/2023 CBC w auto diff 08/04/2024 Comprehensive metabolic panel (CMP) 10/2024 Next Appt Details Provider Name:Karen Rohith, 11/24 10:30:00 AM, [address], [place], [address], Provider Name:Chapo Mays , 01/14/2025 10:00:00 AM, [address], [place], [address], Provider Name:Karen Rohith, 01/19 10:30:00 AM, [address], [place], [address], Insurance Providers Payer Name Payer Address Payer Phone Subscriber Number Group Number Insured Name Patient Relationship to Insured Coverage Start Date Coverage End Date [facility] [employer] [address] [place] [phone] [id number] Stefany Kinney Self - patient is the insured [employer] [address] [place] [address] [id number] Stefany Kinney Self - patient is the insured [facility] [employer] - HRA [address] [place] [address] [id number] Stefany Kinney Self - patient is the insured Medical (General) History Medical History History ICD Code Ankylosing polyarthritis; Ankylosing spondylitis: - chronic, 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 She is no longer on Taltz. 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 Their workup was reportedly unremarkable. - refer to Neurology for further eval víctor barrera tx , Date of Onset: 10/23/2022; Healthcare maintenance: Tdap/Td vaccine (Q10Y): do today; next due 2032 PCV 13 vaccine : PPSV 23 vaccine : Varicella vaccine/Shingrix (>50 optional ): not indicated at this time Influenza vaccine (Annual): UTD Mammogram (Annual F 50-75): last one 1y ago; due, will get set up with place she goes to in [place] Pap smear (F 21-65, Q3Y): last 1 one yr ago; sees [employer] Colon cancer screening (45-7 5y): due; refer to Dr. Linda, info given to patient DEXA scan (F >65, Chronic steroid): not indicated at this time Lipid panel (9-11, 17-21, M >35, F >45, At risk): obtain lipid panel HRCT (55-80 if >20 pack year smoking, annual): former smoker; smoked 1ppd x15y, quit in 2009 Diabetic screening (annual): check A1c * reviewed CBC and CMP from 10/17/2022. No concerning findings. , Date of Onset: 10/23/2022; History of gastric bypass, Date of Onset : 10/23/2022; Immunization due, Date of Onset: 023; Kidney Stones; Lung nodule, multiple: - per patient, first seen around 2009; monitored and stable, so no longer monitored - will review external records once obta in , Date of Onset: 10/23/2022; Surgical History Surgery Date(Month/Year) Gastric bypass, laparoscopic; 2017-10-04 knee: left knee scope; clean ed up cartilage, Date of Procedure: 1997; 2017-10-15 Tonsillectomy, Date of Procedure: 1986; 2017-10-15 Gall Bladder Surgery, Date of Procedure: 2011; 2017-10-15 Ovarian cyst removal: right side, Date o f Procedure: 2014; 2017-10-15 Tarsal tunnel release, right foot, Date of Procedure: 2010; 2017-10-15 gastric sleeve; 2017-10-15 Occipital Nerve Decompression/Release: D one for occipital neuralgia; 2022-10-23 spinal cord stimulator implant; Hospitalization History Reason Date(Month/Year)
== END 2024-10-05 09:36 | disposition home or self-care (01) ==
PROVIDERS: Emergency Provider Nurse Practitioner
DX: J22 Unspecified acute lower respiratory infection (principal); J45.909 Unspecified asthma, uncomplicated; M45.9 Ankylosing spondylitis of unspecified sites in spine; M17.12 Unilateral primary osteoarthritis, left knee
CPT/HCPCS: 99213; G0463